=== PATIENT | female | born 1995 | race Caucasian/White ===

== ENCOUNTER → 2020-06-24 | Emergency (ER) | payer OTHER ==
[~2020-06-24] MED LIST: NICOTINE 21MG/24HR 1 EA TRANSDERMAL As Ordered ONE; NICOTINE 21MG/24HR 1 EA TRANSDERMAL ONE
[2020-08-08 18:01] LABS: HEMATOCRIT 44.1 % (36.0-47.0); HEMOGLOBIN 14.6 g/dl (12.0-15.5); MEAN CORPUSCULAR HEMOGLOBIN 28.5 pg (27.0-33.0); MEAN CORPUSCULAR HGB CONC 33.1 g/dl (32.0-36.5); MEAN CORPUSCULAR VOLUME 86.1 fl (80.0-96.0); PLATELET COUNT, AUTOMATED 355 10^3/uL (150-450); RED BLOOD COUNT 5.12 10^6/uL (4.00-5.40); WHITE BLOOD COUNT 10.6 10^3/uL (4.0-10.0)
[2020-09-04 16:12] LABS: ACETAMINOPHEN LEVEL < 2.0 UG/ML (10.0-30.0); ALT/SGPT 30 U/L (12-78); BILIRUBIN,DIRECT 0.1 MG/DL (0.0-0.2); BILIRUBIN,TOTAL 0.4 MG/DL (0.2-1.0); BLOOD UREA NITROGEN 15 MG/DL (7-18); CALCIUM LEVEL 9.3 MG/DL (8.5-10.1); CARBON DIOXIDE LEVEL 28 MEQ/L (21-32); CHLORIDE LEVEL 105 MEQ/L (98-107); CREATININE FOR GFR 0.72 MG/DL (0.55-1.30); ETHYL ALCOHOL (ETHANOL) < 0.003 % (0.000-0.010); GLOMERULAR FILTRATION RATE > 60.0 (>60); GLUCOSE, FASTING 106 MG/DL (70-100); POTASSIUM SERUM 3.6 MEQ/L (3.5-5.1); SALICYLATE LEVEL 3.5 MG/DL (5.0-30.0); SODIUM LEVEL 140 MEQ/L (136-145); TOTAL PROTEIN 8.4 GM/DL (6.4-8.2)
[2020-09-04 16:12] LABS: AMPHETAMINES LEVEL URINE NEGATIVE (NEGATIVE); BARBITURATES URINE NEGATIVE (NEGATIVE); BENZODIAZEPINES URINE NEGATIVE (NEGATIVE); CANNABINOIDS URINE POSITIVE (NEGATIVE); COCAINE METABOLITE URINE NEGATIVE (NEGATIVE); METHADONE URINE NEGATIVE (NEGATIVE); OPIATES URINE NEGATIVE (NEGATIVE); PHENCYCLIDINE URINE NEGATIVE (NEGATIVE)
[2020-09-08 20:44] LABS: HCG, SERUM QUALITATIVE NEGATIVE (NEGATIVE)
== END | disposition short-term general hospital (02) ==
LOC: M ED 06-23 08:12
DX: R45.851 Suicidal ideations (principal); I10 Essential (primary) hypertension; E66.9 Obesity, unspecified; Z91.19 Patient's noncompliance with other medical treatment and regimen; F12.10 Cannabis abuse, uncomplicated; F31.9 Bipolar disorder, unspecified; Z91.5 Personal history of self-harm; Z88.1 Allergy status to other antibiotic agents
CPT/HCPCS: 80048; 80076; 80307; 84443; 84703; 85027; 87486; 87581; 87633; 87798; 99285; G0480

== ENCOUNTER 2021-01-13 21:40 | Inpatient (IN) | payer OTHER ==
[~2021-01-13] VITALS: Ht 165.1 cm; Wt 109.6 kg
--- OUTSIDE RECORDS SUMMARY | 2021-01-13 21:44 | CCD ---
Author Author [facility] Organization [facility] Address Unknown Phone Unavailable Care Team Providers Care Furnace Mechanic Helper Name Role Phone NCKEITH, MJAIN Unavailable Unavailable MARAVEGIASSelena MD Unavailable Unavailable MARAVEGIASSelena MD Unavailable Unavailable MARAVEGIASSelena MD Unavailable Unavailable MARAVEGIASSelena MD Unavailable Unavailable MARAVEGIASelena Smith MD Unavailable Unavailable MARAVEGIASelena Smith MD Unavailable Unavailable MARAVEGIASelena Smith MD Unavailable Unavailable MARAVEGIASelena Smith MD Unavailable Unavailable MARAVEGIASelena Smith MD Unavailable Unavailable MARAVESelena GONZALEZ MD Unavailable Unavailable MARAVESelena GONZALEZ MD Unavailable Unavailable MARAVESelena GONZALEZ MD Unavailable Unavailable MARAVEGIASelena Smith MD Unavailable Unavailable MARAVEGIASSelena MD Unavailable Unavailable Nayely Richards DO Unavailable Unavailable Nayely Richards Haroon DO Unavailable Unavailable [place], Paul DO Unavailable Unavailable [place], Paul DO Unavailable Unavailable [place], Paul DO Unavailable Unavailable [place], Paul DO Unavailable Unavailable Re-disclosure Warning The records that you are about to access may contain information from federally-assisted alcohol or drug abuse programs. If such information is present, then the following federally mandated warning applies: This information has been disclosed to you from records protected by federal confidentiality rules (42 CFR part 2). The federal rules prohibit you from making any further disclosure of this information unless further disclosure is expressly permitted by the written consent of the person to whom it pertains or as otherwise permitted by 42 CFR part 2. A general authorization for the release of medical or other information is NOT sufficient for this purpose. The Federal rules restrict any use of the information to criminally investigate or prosecute any alcohol or drug abuse patient.The records that you are about to access may contain highly sensitive health information, the redisclosure of which is protected by Article 27-F of the [facility] Public Health law. If you continue you may have access to information: Regarding HIV / AIDS; Provided by facilities licensed or operated by the [facility] Office of Mental Health; or Provided by the [facility] Office for People With Developmental Disabilities. If such information is present, then the following [facility] mandated warning applies: This information has been disclosed to you from confidential records which are protected by state law. State law prohibits you from making any further disclosure of this information without the specific written consent of the person to whom it pertains, or as otherwise permitted by law. Any unauthorized further disclosure in violation of state law may result in a fine or fpc sentence or both. A general authorization for the release of medical or other information is NOT sufficient authorization for further disc losure. Allergies and Adverse Reactions Type Description Substance Reaction Status Data Source(s ) Drug allergy Drug allergy azithromycin (From Zithromax) Anaphylactic Shock [facility] Encounters Encounter Providers Location Date Indications Data Source(s ) Emergency Attender: Haroon Richards DOAttender: Paul Birmingham DO CPSCAORT-ED 08/30/2020 09:34:00 PM EDT - 08/30/2020 11:38:00 PM EDT [facility] Patient discharged. Outpatient Attender: RAJEEV [facility] LERAYDC 07/19/2020 12:02:02 AM EDT [facility] Emergency Attender: SHAWN CABRERA MD ED-ED 0 12/27/2019 07:14:00 PM EST - 12/27/2019 07:41:00 PM EST TOOTH PAIN [facility] TOOTH PAIN Patient discharged. Medications Medication Brand Name Start Date Product Form Dose Route Admi nistrative Instructions Pharmacy Instructions Status Indications Reaction Description Data Source(s) 600 mg 12/27/2019 12:00:00 AM EST tablet 30 TAKE ONE TABLET BY MOUTH EVERY 6 HOURS NEEDED FOR PAIN TAKE ONE TABLET BY MOUTH EVERY 6 HOURS A S NEEDED FOR PAIN SOLD: 12/27/2019 [facility] 300 mg 12/27/2019 12:00:00 AM EST capsule 40 TAKE ONE CAPSULE BY MOUTH FOUR TIMES A DAY FOR 10 DAYS TAKE ONE CAPSULE BY MOUTH FOUR TIMES A DAY FOR 10 DAYS SOLD: 12/27/2019 [facility] Insurance Providers Payer name Policy type / Coverage type Policy ID Covered democrat ID Covered democrat's relationship to irizarry Policy Irizarry Plan Information [facility] [employer] [id number] SP [id number] [facility] PL [id number] [facility] d [id number] PREET [id number] SP [id number] Medicaid P [id number] S [id number] [facility] PL [id number] S [id number] [facility] I [id number] Self [id number] ANSI-Commercial [id number] [facility] [id number] S [id number] MEDICAID PROF FEES [id number] S [id number] MEDICAID [id number] S [id number] MEDICAID [id number] SP [id number] PREET [id number] 18 [id number] MEDICAID -O/P [id number] 18 [id number] MEDICAID -PHYSICIAN [id number] [facility] S [id number] O [id number] MEDICAID -I/P [id number] [facility] PL[facility] -O/P [id number] Surgeries/Procedures Procedure Description Date Indications Data Source(s) CUL PRSMPTV PTHGNC ORGANISM SCRN W/COLONY ESTIMJ CULTURE SCR EEN ONLY 08/30/2020 12:00:00 AM [facility] CULTURE BACTERIAL BLOOD AEROBIC W/ID ISOLATES BLOOD CULTURE FOR BACTERIA 08/30/2020 12:00:00 AM [facility] SUSCEPTIBLTY STDY ANTIMICRBIAL MICRO/AGAR DILUTJ MICROBE HIREN CEPTIBLE NATHALIA 08/30/2020 12:00:00 AM [facility] CUL BACT XCPT URINE BLOOD/STOOL AEROBIC ISOL CULTURE OTHR SP ECIMN AEROBIC 08/30/2020 12:00:00 AM [facility] Non-covered item or service NON-COVERED ITEM OR SERVICE 07/2020 12:00:00 AM [facility] Injection, piperacillin sodium/tazobacta m sodium, 1 gram/0.125 grams (1.125 grams) 08/30/2020 12:00:00 AM [facility] COLLECTION VENOUS BLOOD VENIPUNCTURE ROUTINE VENIPUNCTURE 12:00:00 AM [facility] IV INFUSION THERAPY/PROPHYLAXIS /DX 1ST TO 1 HR THER/PROPH/D IAG IV INF INIT 08/30/2020 12:00:00 AM [facility] EMERGENCY DEPARTMENT VISIT HIGH/URGENT SEVERITY EMERGENCY DE PT VISIT 08/30/2020 12:00:00 AM [facility] Results ID Date Data Source [id number] 08/30/2020 09:34:00 PM [facility] Name: SALENA PRINCE Med Rec #: [id number] : 1995 Age/Sex: 25F Date of Service: 08/30/20 PHYSICIAN CHART Physician Documentation [facility] Name: Salena Prinec Age: 25 yrs Sex: Female : 1995 Arrival Date: 08/30/2020 Time: 21:34 Bed 13 Private MD: ED Physician Haroon Richards HPI: 08/30 22:23 This 25 yrs old Female presents to ER via Law mlm1 Enforcement wi th complaints of Abscess. 22:23 This is a obese 25-year-old female who has a history of mlm1 intermittent asthma not requiring daily bronchodilators, who is also an IV drug user. The patient is in police custody, before arrest, she apparently self injected IV drugs into her left dorsal forearm. Unfortunately this resulted in a large 8 cm abscess with an approximate 5 cm dome. It showed a clear central ulceration with a large pocket of frankly purulent hematoma. The patient denies fever, chills, nausea, vomiting. She does show signs of surrounding cellulitis, patient has significant pain due to the abscess. The patient has had abscesses like this before secondary to IV drug injection, the patient states that she would like the abscess drained, She has not recently been on a ntibiotics. Patient states she is allergic to azithromycin.. [employer] ARCHITECT: 21:45 LMP N/A - Irregular menses arj Historical: - Allergies: Zithromax; - Home Meds: 1. None - PMHx: ASTHMA; - PSHx: Wrist Surgery; Cholecystectomy; Dilation and currettage (D&C); - Med Reconciliation:: Medications reviewed, verbally from patient/family. - Immunization history: All immunizations are up to date. - Advance directive: There is no existing advanced directive. Information offered. - Family History:: mother is healthy, Father is healthy. - Social History: Smoking status (Tobacco): Patient states is a heavy tobacco smoker (>10 cigarettes a day). Preferred Language: Maltese. ROS: 22:28 Constitutional: I reviewed 10 systems all which were mlm1 negative other than those mentioned in the HPI. Exam: 22:28 Constitutional: This is a well developed, well nourished mlm1 patient who is awake, alert, and in significant dramatic painful distress Head/Face: Normocephalic, atraumatic. Eyes: Pupils equal round and reactive to light, extra-ocular motions intact. Lids and lashes normal. Conjunctiva and sclera are non-icteric and not injected. Cornea within normal limits. Periorbital areas with no swelling, redness, or edema. ENT: Nares patent. No nasal discharge, no septal abnormalities noted. Tympanic membranes are normal and external auditory canals are clear. Oropharynx with no redness, swelling, or masses, exudates, or evidence of obstruction, uvula midline. Mucous membranes moist. Neck: Trachea midline, no thyromegaly or masses palpated, and no cervical lymphadenopathy. Supple, full range of motion without nuchal rigidity, or vertebral point tenderness. No Meningismus. Chest/axilla: Normal chest wall appearance and motion. Nontender with no deformity. No lesions are appreciated. Clavicles show no deformity. Cardiovascular: Regular rate and rhythm with a normal S1 and S2. No murmurs or rubs. No noted arrthmias. No JVD. No pulse deficits. Respiratory: Lungs have clear & equal breath sounds bilaterally. No rales, rhonchi or wheezes noted. No increased work of breathing, no retractions or nasal flaring. Abdomen/GI: Morbidly obese soft, non-tender, with normal bowel sounds. No distension or tympany. No guarding, rigidity or rebound. No evidence of tenderness throughout. Skin: Warm, dry with normal turgor. Normal color with no rashes, no lesions, and no evidence of cellulitis. Abscess to the dorsal left forearm as noted in the HPI MS/ Extremity: Pulses equal, no cyanosis. Neurovascular intact. Full, normal range of motion. Neuro: Awake and alert, GCS 15, oriented to person, place, time, and situation. Cranial nerves II-XII grossly intact. Motor strength 5/5 in all extremities. Sensory grossly intact. Cerebellar exam normal. Normal gait. Psych: Awake, alert, with orientation to person, place and time. Behavior, mood, and affect are within normal limits. Mild intellectual defect Vital Signs: 21:45 BP 118 / 67; Pulse 95; Resp 18; Temp 97.4(TE); Pulse Ox 97% arj on R/A; Weight 117.93 kg (R); Height 5 ft. 6 in. (167.64 cm) (R); 23:37 BP 111 / 66; Pulse 86; Resp 16; Pulse Ox 98% ; jb7 21:45 Body Mass Index 41.96 (117.93 kg, 167.64 cm) [facility] MDM: 21:54 Patient medically screened. mlm1 22:29 ED course: After informed consent, the patient was prepped mlm1 and draped in a sterile fashion, the wound was cleaned with chlorhexidine and allowed to air dry, subsequently the anterior roof of the abscess was anesthetized with 10 cc of bupivacaine with 1% epinephrine, this was allowed to anesthetize for approximately 5 minutes, then using an 11 blade scalpel, a 1.5 cm linear laceration was made there was a large amount approximately 35 cc of frankly purulent and then seropurulent discharge, it was foul-smelling and had a component of likely anaerobe infection. The wound was then milked gently curetted, instilled with more lidocaine and then flushed with 10 cc of sterile saline, when the wound pocket was clean, it was left open, was wrapped in a dry sterile bandage and Coban to allow to drain. The patient received 3.375 g of Zosyn, she also received oral dose of Keflex and an oral dose of doxycycline. The patient will be discharged back into police custody with a 10-day course of both the doxycycline and the Keflex. The wound will be allowed to close by secondary intent. I discussed the plan of care with the patient and police, written instructions were given. A wound culture was taken and sent.. 22:55 ED course: The patient is tolerated the IV medicine, we ml have sent in a prescription, at the time of discharge the patient was awake alert oriented no acute distress and discharged in police custody. 08/30 22:27 Order name: Blood Culture - Venous mlm1 08/31 03:05 Order name: Wound Culture-Non Surgical Site: left forearm mlm1 08/30 22:27 Order name: Iv Saline Lock; Complete Time: 22:50 mlm1 Dispensed Medications: 23:02 Drug: Piperacillin-Tazobactam 3.375 grams jb7 [piperacillin-tazobactam 4.5 gram intravenous solution] Route: IVPB; Site: left antecubital; 23:39 Follow up: Response: No adverse reaction; IV Status: jb7 Completed infusion; IV Intake: 100ml 23:02 Drug: Cephalexin 500 mg [cephalexin 250 mg capsule (2 jb7 caps)] Route: PO; 23:39 Follow up: Response: No adverse reaction jb7 23:02 Drug: Doxycycline 100 mg [doxycycline hyclate 100 mg jb7 capsule (1 caps)] Route: PO; 23:39 Follow up: Response: No adverse reaction jb7 Disposition Summary: 08/30/20 22:57 Discharge Ordered Location: Home/Self Care mlm1 Problem: an ongoing problem mlm1 Symptoms: have improved mlm1 Condition: Good mlm1 Diagnosis - Cutaneous abscess of left upper limb mlm1 Followup: mlm1 - With: Private Physician - When: Rey nurse if unavailable return to the ER as needed - Reason: Recheck today's complaints Discharge Instructions: - Discharge Summary Sheet mlm1 - Skin Abscess mlm1 - Incision and Drainage mlm1 Forms: - Medication Reconciliation mlm1 Prescriptions: - Cephalexin 500 mg Oral Capsule - take 1 capsule by ORAL route every 12 hours for 10 mlm1 days; 20 capsule; Refills: 0, Product Selection Permitted - Doxycycline Hyclate 100 mg Oral Tablet - take 1 tablet by ORAL route every 12 hours; 20 mlm1 tablet; Refills: 0, Product Selection Permitted Signatures: Dispatcher [employer] EDHussain Brown RN RN jb7 Johnson, Abigail, RN RN arj Morgan, Matthew, MD MD mlm1 Name Value Range Interpretation Code Description Data Maryam rce(s) Supporting Document(s) ID Date Data Source [id number] 08/30/2020 09:34:00 PM EDT [facility] Name: SALENA PRINCE [facility] Rec #: [id number] : 1995 Age/Sex: 25F Date of Service: 08/30/20 DISPOSITION SUMMARY Discharge Summary [facility] Name:Salena [facility] Age:25 yrs Sex:Female :1995 Arrival:08/30/2020 21:34 Departure Date08/31/2020 Departure Time03:22 Private MD: Outcome: Discharge Location: Home/Self Care Condition: Good Chief Complaint: Abscess Diagnosis: Cutaneous abscess of left upper limb Prescriptions: Cephalexin 500 mg Oral Capsule - take 1 capsule by ORAL route every 12 hours for 10 days; 20 capsule, Doxycycline Hyclate 100 mg Oral Tablet - take 1 tablet by ORAL route every 12 hours; 20 tablet Custom Notes: Attending Physician: Haroon Richards MD Private MD: Mid Level Provider: Orders: Blood Culture - Venous, Wound Culture-Surgical Site, Piperacillin-Tazobactam, Cephalexin, Doxycycline, Wound Culture-Non Surgical Site: left forearm, Iv Saline Lock Discharge Instruction: Discharge Summary Sheet, Skin Abscess, Incision and Drainage, Medication Reconciliation Name Value Range Interpretation Code Description Data Maryam rce(s) Supporting Document(s) ID Date Data Source [id number] 08/30/2020 09:34:00 PM EDT [facility] Name: SALENA PRINCE [facility] Rec #: [id number] : 1995 Age/Sex: 25F Date of Service: 08/30/20 NURSE CHART Nurse's Notes [facility] Name: Salena Prince Age: 25 yrs Sex: Female : 1995 Arrival Date: 08/30/2020 Time: 21:34 Bed 13 Private MD: Diagnosis: Cutaneous abscess of left upper limb Presentation: 08/30 21:48 Transition of care: [facility]. Presenting arj complaint: Patient states - I have an abscess. Have you travelled in the last 30 days? No. Have you had contact with an individual with a confirmed diagnosis of Ebola or COVID-19? No. 21:48 Method Of Arrival: Law Enforcement: [facility] 21:48 Acuity: Urgent - 3 arj Triage Assessment: 21:48 SEPSIS SCREEN: A Confirmed or Suspected Infection is arj Unknown, their temperature is not <96.8 or >100.9, their heart rate is >90, their RR is not >20, it is unknown if their WBC is <4 or >12, the patient does not have new or unexplained altered mental status. SIRS or Sepsis criteria is not present. Suicide Screening: Have you had thoughts of harming yourself or others? No. The patient appears to have no apparent distress, to have some mild discomfort, The patient is behaving appropriately according to age, cooperative. Patient states the pain is currently a 10 / 10 The patient complains of pain in dorsal aspect of left forearm. The patient states the pain began 1weeks ago. The quality of the pain is described as Sore tender, The pain is described as continuous. Derm: Skin is healthy with good turgor, Skin is pink, warm & dry. Abscess located on dorsal aspect of left forearm is golf ball sized, has purulent drainage, is red, is raised. [employer] ARCHITECT: 21:45 LMP N/A - Irregular menses arj Historical: - Allergies: Zithromax; - Home Meds: 1. None - PMHx: ASTHMA; - PSHx: Wrist Surgery; Cholecystectomy; Dilation and currettage (D&C); - Med Reconciliation:: Medications reviewed, verbally from patient/family. - Immunization history: All immunizations are up to date. - Advance directive: There is no existing advanced directive. Information offered. - Family History:: mother is healthy, Father is healthy. - Social History: Smoking status (Tobacco): Patient states is a heavy tobacco smoker (>10 cigarettes a day). Preferred Language: Maltese. Screenin:52 AUDIT 1. How often do you have a drink containing alcohol? arj Never (0 points). Drug Abuse Screening Test: 1. Have you used drugs other than those required for medical reasons? Yes (1 point) 2. Do you use more than one drug at a time? No (0 points). Abuse screen: Denies threats or abuse. Denies injuries from another. Nutritional screening: No deficits noted. Patient has no identifiable fall risk (Iyer Scale: 0 points). Assessment: 22:52 Derm: Abscess located on dorsal aspect of left forearm is jb7 golf ball sized, has purulent drainage, has foul odor, is red, is raised. Vital Signs: 21:45 BP 118 / 67; Pulse 95; Resp 18; Temp 97.4(TE); Pulse Ox 97% arj on R/A; Weight 117.93 kg (R); Height 5 ft. 6 in. (167.64 cm) (R); 23:37 BP 111 / 66; Pulse 86; Resp 16; Pulse Ox 98% ; jb7 21:45 Body Mass Index 41.96 (117.93 kg, 167.64 cm) arj ED Course: 21:36 Patient arrived in ED. rld 21:48 Triage completed. arj 21:50 Arm band placed on right wrist. Patient has correct armband arj on for positive identification. Officer at Bedside. 21:53 Hussain Echavarria, RN is Primary Nurse. arj 21:54 Haroon Richards MD is Attending Physician. mlm1 22:51 Assist provider with I & D: of an abscess on left Forearm jb7 Set up I&D tray. Performed by Haroon Richards MD Culture sent to lab. Dressing with 4X4s, tape Patient tolerated well. Wound culture sent to lab. First set of blood cultures drawn Second set of blood cultures drawn by me. Inserted peripheral IV: 18 gauge in left antecubital area and blood collected. 23:38 Radiology: None performed. jb7 23:38 Discontinued IV bleeding controlled, pressure dressing jb7 applied, No redness/swelling at site. Administered Medications: 23:02 Drug: Piperacillin-Tazobactam 3.375 grams jb7 [piperacillin-tazobactam 4.5 gram intravenous solution] Route: IVPB; Site: left antecubital; 23:39 Follow up: Response: No adverse reaction; IV Status: jb7 Completed infusion; IV Intake: 100ml 23:02 Drug: Cephalexin 500 mg [cephalexin 250 mg capsule (2 jb7 caps)] Route: PO; 23:39 Follow up: Response: No adverse reaction jb7 23:02 Drug: Doxycycline 100 mg [doxycycline hyclate 100 mg jb7 capsule (1 caps)] Route: PO; 23:39 Follow up: Response: No adverse reaction jb7 Intake: 23:39 IV: 100ml; Total: 100ml. jb7 Outcome: 22:57 Discharge ordered by MD. calvillo 23:38 Patient verbalized understanding of disposition jb7 instructions. Patient has no functional deficits. Patient functions independently, Patient awake and alert. Oriented to person, place and time. 23:38 Patient discharged to police custody. 23:38 Condition: good Condition: stable Condition: improved 23:38 Discharge instructions given to patient, police, Patient was instructed on discharge instructions, follow up and referral plans, medication usage, The patient demonstrated understanding of instructions, medications, Prescriptions given X 2. 23:38 Vitals are Complete in accordance with Emergency Department Policy. 23:46 Patient left the ED. jb7 08/31 03:22 Patient left the ED. kl1 Signatures: Brad Caldwell RN RN kl1 Hussain Echavarria RN RN jb7 Charlette Gray RN RN arj Morgan, Matthew, MD MD mlGloria Lowery Name Value Range Interpretation Code Description Data Maryam rce(s) Supporting Document(s) ID Date Data Source [id number] 09/04/2020 11:34:00 PM EDT [facility] Name Value Range Interpretation Code Description Data Maryam rce(s) Supporting Document(s) Blood Culture-Venous [facility] ID Date Data Source [id number] 09/04/2020 11:34:00 PM EDT [facility] Hospital Name Value Range Interpretation Code Description Data Maryam rce(s) Supporting Document(s) Blood Culture-Venous [facility] Procedure Vital Signs ID Date Data Source [id number] 09/05/2020 11:30:00 AM EDT [facility] Hospital Name Value Range Interpretation Code Description Data Source(s) Weight (Calculated Kilograms) 113.44 113.44 [facility] Height (Calculated Centimeters) 165.1 165. 1 [facility] Body Mass Index (BMI) 37.9 37.9 [facility] Weight (Calculated Kilograms) 113.44 113.44 [facility] Height (Calculated Centimeters) 165.1 165. 1 [facility] Body Mass Index (BMI) 37.9 37.9 [facility] Weight (Calculated Kilograms) 113.44 113.44 [facility] Height (Calculated Centimeters) 165.1 165. 1 [facility] Body Mass Index (BMI) 37.9 37.9 [facility] ID Date Data Source [id number] 12/27/2019 07:42:00 PM EST [facility] Name Value Range Interpretation Code Description Data Source(s) Weight Measurement Method 8 8 [facility] Temperature Source 7 7 [facility] Temperature 97.7 97.7 [facility] Respiratory Rate [address] [facility] Pulse Rate 105 105 [facility] Height 65 65 [facility] Blood Pressure 152/105 152/105 [facility]
[2021-01-13] MEDS ORDERED: NALOXONE 2MG/2ML SYRINGE (J2310 PER 1MG) As Ordered ONE (21:53)
[2021-01-13] MEDS ORDERED: NOREPINEPHRINE 4 MG/4 ML AMP As Ordered ONE (21:55)
[2021-01-13 22:17] LABS: HEMATOCRIT 43.9 % (36.0-47.0); HEMOGLOBIN 12.2 g/dl (12.0-15.5); MEAN CORPUSCULAR HEMOGLOBIN 27.7 pg (27.0-33.0); MEAN CORPUSCULAR HGB CONC 27.8 g/dl (32.0-36.5); MEAN CORPUSCULAR VOLUME 99.5 fl (80.0-96.0); PLATELET COUNT, AUTOMATED 171 10^3/uL (150-450); RED BLOOD COUNT 4.41 10^6/uL (4.00-5.40); WHITE BLOOD COUNT 17.1 10^3/uL (4.0-10.0)
[2021-01-13 22:31] LABS: ATYPICAL LYMPH 5 % (0-5); EOSINOPHILS 1 % (0-3); MONOCYTES 1 % (0-5); NEUTROPHILS 7 % (28-66)
[2021-01-13 22:32] LABS: PLATELET ESTIMATE NORMAL (NORMAL)
[2021-01-13 22:38] LABS: LYMPHOCYTES 84 % (16-44); METAMYELOCYTES 2 % (0-0)
[2021-01-13 23:19] LABS: ALT/SGPT 345 U/L (12-78); BLOOD UREA NITROGEN 19 MG/DL (7-18); CALCIUM LEVEL 10.7 MG/DL (8.5-10.1); CARBON DIOXIDE LEVEL 20 MEQ/L (21-32); CHLORIDE LEVEL 104 MEQ/L (98-107); CK-MB VALUE MASS 2.1 NG/ML (<3.6); CPK CREATINE PHOSPHOKINASE 185 U/L (26-192); CREATININE FOR GFR 1.83 MG/DL (0.55-1.30); GLOMERULAR FILTRATION RATE 35.8 (>60); GLUCOSE, FASTING 246 MG/DL (70-100); POTASSIUM SERUM 7.8 MEQ/L (3.5-5.1); SODIUM LEVEL 143 MEQ/L (136-145)
[2021-01-13 23:20] LABS: AMPHETAMINES LEVEL URINE POSITIVE (NEGATIVE); BARBITURATES URINE NEGATIVE (NEGATIVE); BENZODIAZEPINES URINE NEGATIVE (NEGATIVE); CANNABINOIDS URINE NEGATIVE (NEGATIVE); COCAINE METABOLITE URINE NEGATIVE (NEGATIVE); METHADONE URINE NEGATIVE (NEGATIVE); OPIATES URINE POSITIVE (NEGATIVE); PHENCYCLIDINE URINE NEGATIVE (NEGATIVE)
[2021-01-13 23:20] LABS: ACETAMINOPHEN LEVEL < 2.0 UG/ML (10.0-30.0); BILIRUBIN,DIRECT 0.2 MG/DL (0.0-0.2); BILIRUBIN,TOTAL 0.3 MG/DL (0.2-1.0); ETHYL ALCOHOL (ETHANOL) < 0.003 % (0.000-0.010); MB/CK RELATIVE INDEX 1.14 (< OR =4); SALICYLATE LEVEL 2.5 MG/DL (5.0-30.0); TOTAL PROTEIN 6.4 GM/DL (6.4-8.2); TROPONIN I 0.12 NG/ML (< 0.10)
[2021-01-13] MEDS ORDERED: SODIUM BICARBONATE 8.4% INJ 50 ML SYRINGE IV STA (23:23)
[2021-01-13 23:24] LABS: HCG, SERUM QUALITATIVE NEGATIVE (NEGATIVE)
[2021-01-13] MEDS ORDERED: SODIUM BICARBONATE 150 MEQ in D5W 1,000 ML IV SCH (23:30)
[2021-01-13] MEDS ORDERED: CALCIUM CHLORIDE 10% 1 GM in D5W 100 ML IV ONE (23:30)
--- NOTE | 2021-01-13 23:34 | REPVR ---
PROCEDURE INFORMATION: Exam: XR Chest, 1 View Exam date and time: 01/13/21 (10:42pm) Age: 25 years old Clinical indication: Drug overdose. E-T and NG tube placements. TECHNIQUE: Imaging protocol: Portable CXR Views: 1 view COMPARISON: No relevant prior studies available FINDINGS: No prior chest films are available for comparison. The patient is slightly rotated to an HOLDER position. Hazy and streaky opacities at the left lung base. Possible additional small hazy opacity laterally near the left lung base. Elevation of the left hemidiaphragm. No significant pleural effusions. The right lung appears clear. E-T tube in place, with its tip in in the proximal right mainstem bronchus on 1 of the 2 films provided. Enteric tube is seen, passing into the stomach. IMPRESSION: Probable streaky and patchy LLL pneumonia. Perhaps aspiration, eg. Possible additional small infiltrate more peripherally near the left lung base. No significant pleural effusions. E-T tube in place, with its tip in in the proximal right mainstem bronchus on 1 of the 2 films provided. Enteric tube is seen, passing into the stomach. Electronically signed by: Priscilla Mccormick On 01/13/2021 23:34:16 PM
--- NOTE | 2021-01-13 23:37 | REPVR ---
PROCEDURE INFORMATION: Exam: XR Abdomen, 1 View Exam date and time: 01/13/21 (10:32pm) Age: 25 years old Clinical indication: Right-sided central line placement TECHNIQUE: Imaging protocol: XR of the abdomen. Views: Frontal supine view of the abdomen. 1 View. COMPARISON: No relevant prior studies available FINDINGS: A single portable supine view of the mid abdomen and the mid and upper pelvis is provided. The right lateral abdomen is not included on the film. An enteric tube is seen, with its tip in the midportion of the stomach. The stomach is mildly distended, filled with air. A few air-filled bowel loops are noted, in a nonspecific pattern. A right-sided femoral catheter is seen, with its tip projecting over the right hemisacrum. IMPRESSION: An enteric tube is seen, with its tip in the midportion of the stomach. A right-sided femoral catheter is seen, with its tip projecting over the right hemisacrum. See additional comments above. Electronically signed by: Priscilla Mccormick On 01/13/2021 23:37:56 PM
--- NOTE | 2021-01-13 23:40 | REPVR ---
PROCEDURE INFORMATION: Exam: CT Head without Contrast Exam date and time: 01/13/21 (11:23pm) Age: 25 years old Clinical indication: Altered mental status / memory loss. Unresponsive. Drug overdose. TECHNIQUE: Imaging protocol: Computed tomography of the head without contrast. Radiation optimization: All CT scans at this facility use at least one of these dose optimization techniques: automated exposure control; mA and/or kV adjustment per patient size (includes targeted exams where dose is matched to clinical indication); or iterative reconstruction. COMPARISON: No relevant prior studies available FINDINGS: Brain: Unremarkable. No acute hemorrhage. Unremarkable white matter. No mass effect. Cerebral ventricles: No ventriculomegaly. Bones/joints: Unremarkable. No acute fracture. Paranasal sinuses: Left sphenoid sinus polyp or cyst (13 mm size). Bilateral ethmoid sinus membrane thickening. Mastoid air cells: Visualized mastoid air cells are well aerated. Soft tissues: Unremarkable. IMPRESSION: No acute intracranial pathology is appreciated. Electronically signed by: Priscilla Mccormick On 01/13/2021 23:40:53 PM
[2021-01-14] VITALS (71 sets, daily range): BP systolic 38–171; BP diastolic 26–112
[2021-01-14] MEDS ORDERED: MIDAZOLAM INJ 2MG/2ML VIAL (J2250 PER 1MG) IV PRN
[2021-01-14] MEDS ORDERED: VASOPRESSIN INJ 20 UNITS in NS 500 ML IV SCH ×2
[2021-01-14] MEDS ORDERED: dexameTHASONE 20MG/5ML VIAL (J1100 PER 1MG) IV SCH
[2021-01-14] MEDS ORDERED: PIPERACILLIN/TAZOBACTAM SOD 2.25 GM in D5W MINI-BAG PLUS 50 ML IV SCH ×2
[2021-01-14] MEDS ORDERED: ALBUTEROL SULFATE 2.5 MG/0.5 ML INH NEB SOLN NEB PRN
[2021-01-14] MEDS ORDERED: EPINEPHrine 1MG/10ML SYRINGE 1.5IN IV STA (00:03)
[2021-01-14] MEDS ORDERED: NALOXONE 2MG/2ML SYRINGE (J2310 PER 1MG) IV STA (00:03)
[2021-01-14] MEDS ORDERED: DEXTROSE 50% 50 ML SYRINGE IV STA (00:21)
[2021-01-14] MEDS ORDERED: HumuLIN R (REGULAR) INSULIN (NovoLIN R) **100U/ML** PER UNIT IV STA ×2 (00:21→02:46)
[2021-01-14] MEDS: NOREPINEPHRINE BITARTRATE 8 MG in D5W 492 ML IV SCH ×5 (00:22→22:52)
--- OUTSIDE RECORDS SUMMARY | 2021-01-14 00:22 | CCD ---
Author Author [facility] Organization [facility] Address Unknown Phone Unavailable Care Team Providers Care Education Associate Name Role Phone NCKEITH, MJAIN Unavailable Unavailable [...] Unavailable Nayely Richards Haroon DO Unavailable Unavailable [place], Paul DO Unavailable Unavailable [place], Paul DO Unavailable Unavailable [place], Paul DO Unavailable Unavailable [place], Paul DO Unavailable Unavailable Re-disclosure Warning The [...] is protected by Article 27-F of the [facility] Public Health law. If you continue you may have access to information: Regarding HIV / AIDS; Provided by facilities licensed or operated by the [facility] Office of Mental Health; or Provided by the [facility] Office for People With Developmental Disabilities. If such information is present, then the following [facility] mandated warning applies: This information has been [...] law may result in a fine or shelter sentence or both. A general authorization for the release of medical or other information is NOT sufficient authorization for further disc losure. Allergies and Adverse Reactions Type Description Substance Reaction Status Data Source(s ) Drug allergy Drug allergy azithromycin (From Zithromax) Anaphylactic Shock [facility] Encounters Encounter Providers Location Date Indications Data Source(s ) Emergency Attender: Haroon Richards DOAttender: Paul Birmingham DO CPSCAORT-ED 08/30/2020 09:34:00 PM EDT - 08/30/2020 11:38:00 PM EDT ABSCESS [facility] ABSCESS Patient discharged. Outpatient Attender: RAJEEV [facility] LERAY[facility] 07/19/2020 12:02:02 AM EDT [facility] Emergency Attender: SHAWN CABRERA MD ED-ED 0 12/27/2019 07:14:00 PM EST - 12/27/2019 07:41:00 PM EST TOOTH PAIN [facility] TOOTH PAIN Patient discharged. Medications Medication [...] type / Coverage type Policy ID Covered green party ID Covered green party's relationship to irizarry Policy Irizarry Plan Information [facility] [id number] SP [id number] [facility] PL [id number] [facility] d [id number] PREET [id number] SP [id number] Medicaid P [id number] S [id number] [facility] PL [id number] S [id number] [facility] I [id number] Self [id number] ANSI-Commercial [id number] [facility] [id number] S [id number] MEDICAID PROF FEES [id number] S [id number] MEDICAID [id number] S [id number] MEDICAID [id number] SP [id number] PREET [id number] 18 [id number] MEDICAID -O/P [id number] 18 [id number] MEDICAID -PHYSICIAN [id number] [facility] S [id number] O [id number] MEDICAID -I/P [id number] 18 [id number] [facility] PLUS -O/P [id number] Surgeries/Procedures Procedure Description Date Indications Data Source(s) CUL PRSMPTV PTHGNC ORGANISM SCRN W/COLONY ESTIMJ CULTURE SCR EEN ONLY 08/30/2020 12:00:00 AM [facility] CULTURE BACTERIAL BLOOD AEROBIC W/ID ISOLATES BLOOD CULTURE FOR BACTERIA 08/30/2020 12:00:00 AM [facility] SUSCEPTIBLTY STDY ANTIMICRBIAL MICRO/AGAR DILUTJ MICROBE HIREN CEPTIBLE NATHALIA 08/30/2020 12:00:00 AM [facility] CUL BACT XCPT URINE BLOOD/STOOL AEROBIC ISOL CULTURE OTHR SP ECIMN AEROBIC 08/30/2020 12:00:00 AM [facility] Non-covered item or service NON-COVERED ITEM OR SERVICE 07/2020 12:00:00 AM [facility] Injection, piperacillin sodium/tazobacta m sodium, 1 gram/0.125 grams (1.125 grams) 08/30/2020 12:00:00 AM [facility] COLLECTION VENOUS BLOOD VENIPUNCTURE ROUTINE VENIPUNCTURE 12:00:00 AM [facility] IV INFUSION THERAPY/PROPHYLAXIS /DX 1ST TO 1 HR THER/PROPH/D IAG IV INF INIT 08/30/2020 12:00:00 AM [facility] EMERGENCY DEPARTMENT VISIT HIGH/URGENT SEVERITY EMERGENCY DE PT VISIT 08/30/2020 12:00:00 AM [facility] Results ID Date Data Source [id number] 08/30/2020 09:34:00 PM [facility] Hospital Name: SALENA PRINCE Med Rec #: [id number] : 1995 Age/Sex: 25F Date of Service: 08/30/20 PHYSICIAN CHART Physician Documentation [facility] Name: Salena Prince Age: 25 yrs [...] Patient states she is allergic to azithromycin.. 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 Preferred Language: Georgian. ROS: 22:28 Constitutional: I reviewed 10 systems [...] Mass Index 41.96 (117.93 kg, 167.64 cm) [facility] MDM: 21:54 Patient medically screened. mlm1 22:29 [...] rce(s) Supporting Document(s) ID Date Data Source [id number] 08/30/2020 09:34:00 PM EDT [facility] Name: SALENA PRINCE [facility] Rec #: [id number] : 1995 Age/Sex: 25F Date of Service: 08/30/20 DISPOSITION SUMMARY Discharge Summary [facility] Name:Salena Prince Emergency Department Age:25 yrs [...] rce(s) Supporting Document(s) ID Date Data Source [id number] 08/30/2020 09:34:00 PM EDT [facility] Name: SALENA PRINCE [facility] Rec #: [id number] : 1995 Age/Sex: 25F Date of Service: 08/30/20 NURSE CHART Nurse's Notes [facility] Name: Salena Prince Age: 25 yrs [...] No. 21:48 Method Of Arrival: Law Enforcement: [employer] [facility] 21:48 Acuity: Urgent - 3 arj Triage [...] has purulent drainage, is red, is raised. 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 Preferred Language: Georgian. Screenin:52 AUDIT 1. How often do you [...] rce(s) Supporting Document(s) ID Date Data Source [id number] 09/04/2020 11:34:00 PM EDT [facility] Name Value Range Interpretation Code Description Data Maryam rce(s) Supporting Document(s) Blood Culture-Venous [facility] ID Date Data Source [id number] 09/04/2020 11:34:[address] [facility] Hospital Name Value Range Interpretation Code Description Data Maryam rce(s) Supporting Document(s) Blood Culture-Venous [facility] Procedure Vital Signs ID Date Data Source [id number] 09/05/2020 11:30:[address] [facility] Hospital Name Value Range Interpretation Code Description Data Source(s) Weight (Calculated Kilograms) 113.44 113.44 [facility] Height (Calculated Centimeters) 165.1 165. 1 [facility] Body Mass Index (BMI) 37.9 37.9 [facility] Weight (Calculated Kilograms) 113.44 113.44 [facility] Height (Calculated Centimeters) 165.1 165. 1 [facility] Body Mass Index (BMI) 37.9 37.9 [facility] Weight (Calculated Kilograms) 113.44 113.44 [facility] Height (Calculated Centimeters) 165.1 165. 1 [facility] Body Mass Index (BMI) 37.9 37.9 [facility] ID Date Data Source [id number] 12/27/2019 07:42:00 PM EST [facility]ital Name Value Range Interpretation Code Description Data Source(s) Weight Measurement Method 8 8 [facility] Temperature Source 7 7 [facility] Temperature 97.7 97.7 [facility] spital Respiratory Rate 20 20 [facility] Pulse Rate 105 105 [facility] Height 65 65 [facility] Blood Pressure 152/105 152/105 [facility]
--- OUTSIDE RECORDS SUMMARY | 2021-01-14 00:23 | CCD ---
Author Author [facility] Organization [facility] Address Unknown Phone Unavailable Care Team Providers Care Automotive Buyer Name Role Phone NCKEITH, MJAIN Unavailable Unavailable [...] Unavailable Nayely Richards Haroon DO Unavailable Unavailable [place], Paul DO Unavailable Unavailable [place], Paul DO Unavailable Unavailable [place], Paul DO Unavailable Unavailable [place], Paul DO Unavailable Unavailable Re-disclosure Warning The [...] is protected by Article 27-F of the [facility] Public Health law. If you continue you may have access to information: Regarding HIV / AIDS; Provided by facilities licensed or operated by the [facility] Office of Mental Health; or Provided by the [facility] Office for People With Developmental Disabilities. If such information is present, then the following [facility] mandated warning applies: This information has been [...] law may result in a fine or snf sentence or both. A general authorization for the release of medical or other information is NOT sufficient authorization for further disc losure. Allergies and Adverse Reactions Type Description Substance Reaction Status Data Source(s ) Drug allergy Drug allergy azithromycin (From Zithromax) Anaphylactic Shock [facility] Encounters Encounter Providers Location Date Indications Data Source(s ) Emergency Attender: Haroon Richards DOAttender: Paul Birmingham DO CPSCAORT-ED 08/30/2020 09:34:00 PM EDT - 08/30/2020 11:38:00 PM EDT ABSCESS [facility] ABSCESS Patient discharged. Outpatient Attender: RAJEEV [facility] LERAY[facility] 07/19/2020 12:02:02 AM EDT [facility] Emergency Attender: SHAWN CABRERA MD ED-ED 0 12/27/2019 07:14:00 PM EST - 12/27/2019 07:41:00 PM EST TOOTH PAIN [facility] TOOTH PAIN Patient discharged. Medications Medication Brand [...] Policy Irizarry Plan Information [facility] [id number] SP [id number] [facility] PL [id number] [facility] d [id number] PREET [id number] SP [id number] Medicaid P [id number] S [id number] [facility] [address] [id number] S [id number] [facility] I [id number] Self [id number] ANSI-Commercial [id number] [facility] [id number] S [id number] MEDICAID PROF FEES [id number] S [id number] MEDICAID [id number] S [id number] MEDICAID [id number] SP [id number] PREET [id number] 18 [id number] MEDICAID -O/P [id number] 18 [id number] MEDICAID -PHYSICIAN [id number] 1 8 [id number] [facility] [place] S [id number] O [id number] MEDICAID -I/P [id number] [facility] PLUS -O/P [id number] Surgeries/Procedures Procedure Description Date Indications Data Source(s) CUL PRSMPTV PTHGNC ORGANISM SCRN W/COLONY ESTIMJ CULTURE SCR EEN ONLY 08/30/2020 12:00:00 AM [facility] CULTURE BACTERIAL BLOOD AEROBIC W/ID ISOLATES BLOOD CULTURE FOR BACTERIA 08/30/2020 12:00:00 AM [facility] SUSCEPTIBLTY STDY ANTIMICRBIAL MICRO/AGAR DILUTJ MICROBE HIREN CEPTIBLE NATHALIA 08/30/2020 12:00:00 AM [facility] CUL BACT XCPT URINE BLOOD/STOOL AEROBIC ISOL CULTURE OTHR SP ECIMN AEROBIC 08/30/2020 12:00:00 AM [facility] Non-covered item or service NON-COVERED ITEM OR SERVICE 07/2020 12:00:00 AM [facility] Injection, piperacillin sodium/tazobacta m sodium, 1 gram/0.125 grams (1.125 grams) 08/30/2020 12:00:00 AM [facility] COLLECTION VENOUS BLOOD VENIPUNCTURE ROUTINE VENIPUNCTURE 12:00:00 AM [facility] IV INFUSION THERAPY/PROPHYLAXIS /DX 1ST TO 1 HR THER/PROPH/D IAG IV INF INIT 08/30/2020 12:00:00 AM [facility] EMERGENCY DEPARTMENT VISIT HIGH/URGENT SEVERITY EMERGENCY DE PT VISIT 08/30/2020 12:00:00 AM [facility] Results ID Date Data Source [id number] 08/30/2020 09:34:00 PM [facility] Hospital Name: SALENA PRINCE Med Rec #: [id number] : 1995 Age/Sex: 25F Date of Service: 08/30/20 PHYSICIAN CHART Physician Documentation [facility] Name: Salena Prince Age: 25 yrs [...] Patient states she is allergic to azithromycin.. 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 Preferred Language: Puerto Rican. ROS: 22:28 Constitutional: I reviewed 10 systems [...] Mass Index 41.96 (117.93 kg, 167.64 cm) [facility] MDM: 21:54 Patient medically screened. mlm1 [...] rce(s) Supporting Document(s) ID Date Data Source [id number] 08/30/2020 09:34:00 PM EDT [facility] Name: SALENA PRINCE [facility] Rec #: [id number] : 1995 Age/Sex: 25F Date of Service: 08/30/20 DISPOSITION SUMMARY Discharge Summary [facility] Name:Salena Prince Emergency Department Age:25 yrs [...] rce(s) Supporting Document(s) ID Date Data Source [id number] 08/30/2020 09:34:00 PM EDT [facility] Name: SALENA PRINCE [facility] Rec #: [id number] : 1995 Age/Sex: 25F Date of Service: 08/30/20 NURSE CHART Nurse's Notes [facility] Name: Salena Prince Age: 25 yrs [...] No. 21:48 Method Of Arrival: Law Enforcement: [employer] [facility] 21:48 Acuity: Urgent - 3 arj [...] has purulent drainage, is red, is raised. 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 Preferred Language: Puerto Rican. Screenin:52 AUDIT 1. How often do you [...] rce(s) Supporting Document(s) ID Date Data Source [id number] 09/04/2020 11:34:00 PM EDT [facility] Name Value Range Interpretation Code Description Data Maryam rce(s) Supporting Document(s) Blood Culture-Venous [facility] ID Date Data Source [id number] 09/04/2020 11:34:00 PM EDT [facility] Hospital Name Value Range Interpretation Code Description Data Maryam rce(s) Supporting Document(s) Blood Culture-Venous [facility] Procedure Vital Signs ID Date Data Source [id number] 09/05/2020 11:30:00 AM EDT [facility] Hospital Name Value Range Interpretation Code Description Data Source(s) Weight (Calculated Kilograms) 113.44 113.44 [facility] Height (Calculated Centimeters) 165.1 165. 1 [facility] Body Mass Index (BMI) 37.9 37.9 [facility] Weight (Calculated Kilograms) 113.44 113.44 [facility] Height (Calculated Centimeters) 165.1 165. 1 [facility] Body Mass Index (BMI) 37.9 37.9 [facility] Weight (Calculated Kilograms) 113.44 113.44 [facility] Height (Calculated Centimeters) 165.1 165. 1 [facility] Body Mass Index (BMI) 37.9 37.9 [facility] ID Date Data Source [id number] 12/27/2019 07:42:00 PM EST [facility] Name Value Range Interpretation Code Description Data Source(s) Weight Measurement Method 8 8 [facility] Temperature Source 7 7 [facility] Temperature 97.7 97.7 [facility] Respiratory Rate 20 20 [facility] Pulse Rate 105 105 [facility] Height 65 65 [facility] Blood Pressure 152/105 152/105 [facility]
[2021-01-14] MEDS: SODIUM BICARBONATE 150 MEQ in STERILE WATER LITER BAG 1,000 ML IV SCH ×2 (01:27→09:08)
[2021-01-14 01:35] LABS: ABG BASE EXCESS -12.3 (-2.0-2.0); ABG O2 SATURATION 73.3 % (95.0-99.0); ABG PARTIAL PRESSURE CO2 68.7 mmHg (35.0-45.0); ABG PARTIAL PRESSURE O2 45.1 mmHg (75.0-100.0); ABG STANDARD HCO3 14.6 MEQ/L (22.0-26.0); ABG TOTAL CO2 21.1 MEQ/L (22.0-29.0); ABG pH (ARTERIAL) 7.059 UNITS (7.350-7.450)
[2021-01-14] MEDS: PANTOPRAZOLE 40MG VIAL (C9113 PER 1) IV SCH ×3 (02:00→21:18)
[2021-01-14 02:07] LABS: HEMOGLOBIN 12.5 g/dl (12.0-15.5); MEAN CORPUSCULAR HEMOGLOBIN 27.2 pg (27.0-33.0); MEAN CORPUSCULAR HGB CONC 29.1 g/dl (32.0-36.5); MEAN CORPUSCULAR VOLUME 93.5 fl (80.0-96.0); PLATELET COUNT, AUTOMATED 160 10^3/uL (150-450); WHITE BLOOD COUNT 11.9 10^3/uL (4.0-10.0)
[2021-01-14 02:24] LABS: PARTIAL THROMBOPLASTIN TIME 235.7 SECONDS (24.2-38.5)
[2021-01-14 02:46] LABS: PROTHROMBIN TIME > 150.0 SECONDS (12.5-14.3)
[2021-01-14 02:49] LABS: FIBRINOGEN < 60 MG/DL (221-452)
[2021-01-14 02:52] LABS: D-DIMER QUANT > 4000 ng/ml (<500)
[2021-01-14 02:53] LABS: ALBUMIN 2.9 GM/DL (3.2-5.2); BILIRUBIN,TOTAL 0.5 MG/DL (0.2-1.0); CALCIUM LEVEL 9.2 MG/DL (8.5-10.1); CREATININE FOR GFR 1.97 MG/DL (0.55-1.30); GLOMERULAR FILTRATION RATE 32.9 (>60); MAGNESIUM LEVEL 3.1 MG/DL (1.8-2.4); POTASSIUM SERUM 4.7 MEQ/L (3.5-5.1); TOTAL PROTEIN 6.7 GM/DL (6.4-8.2)
[2021-01-14 04:59] LABS: ABG BASE EXCESS -7.9 (-2.0-2.0); ABG HCO3 20.3 MEQ/L (22.0-26.0); ABG O2 SATURATION 96.4 % (95.0-99.0); ABG PARTIAL PRESSURE CO2 53.1 mmHg (35.0-45.0); ABG PARTIAL PRESSURE O2 88.8 mmHg (75.0-100.0); ABG STANDARD HCO3 18.1 MEQ/L (22.0-26.0); ABG TOTAL CO2 21.9 MEQ/L (22.0-29.0)
[2021-01-14 05:48] LABS: HEMATOCRIT 37.2 % (36.0-47.0); HEMOGLOBIN 11.3 g/dl (12.0-15.5); MEAN CORPUSCULAR HEMOGLOBIN 27.6 pg (27.0-33.0); MEAN CORPUSCULAR HGB CONC 30.4 g/dl (32.0-36.5); MEAN CORPUSCULAR VOLUME 90.7 fl (80.0-96.0); PLATELET COUNT, AUTOMATED 165 10^3/uL (150-450); WHITE BLOOD COUNT 14.8 10^3/uL (4.0-10.0)
[2021-01-14 05:53] LABS: PROTHROMBIN TIME 105.6 SECONDS (12.5-14.3)
[2021-01-14 05:54] LABS: PARTIAL THROMBOPLASTIN TIME 100.5 SECONDS (24.2-38.5)
[2021-01-14 06:19] LABS: ALBUMIN 2.5 GM/DL (3.2-5.2); BILIRUBIN,TOTAL 0.4 MG/DL (0.2-1.0); CALCIUM LEVEL 8.2 MG/DL (8.5-10.1); CK-MB VALUE MASS 26.2 NG/ML (<3.6); GLOMERULAR FILTRATION RATE 32.3 (>60); MAGNESIUM LEVEL 2.4 MG/DL (1.8-2.4); MB/CK RELATIVE INDEX 3.48 (< OR =4); POTASSIUM SERUM 3.9 MEQ/L (3.5-5.1); TOTAL PROTEIN 5.6 GM/DL (6.4-8.2); TROPONIN I 4.81 NG/ML (< 0.10)
[2021-01-14 06:31] LABS: INR 13.76
[2021-01-14 07:09] LABS: D-DIMER QUANT > 4000 ng/ml (<500); FIBRINOGEN < 60 MG/DL (221-452)
[2021-01-14] MEDS ORDERED: VASOPRESSIN INJ 20 UNITS in NS 499 ML IV SCH (07:11)
[2021-01-14 07:22] LABS: EOSINOPHILS 1 % (0-3); LYMPHOCYTES 13 % (16-44); MONOCYTES 3 % (0-5); MYELOCYTES 1 % (0-0); NEUTROPHILS 79 % (28-66)
[2021-01-14 07:23] LABS: PLATELET ESTIMATE NORMAL (NORMAL)
[2021-01-14 07:25] LABS: BURR CELLS 1+
[2021-01-14] MEDS ORDERED: NS 1,000 ML IV ONE (07:45)
[2021-01-14] MEDS: VASOPRESSIN INJ 20 UNITS in NS 499 ML IV SCH ×3 (08:02→23:18)
[2021-01-14] MEDS: PIPERACILLIN/TAZOBACTAM SOD 2.25 GM in D5W MINI-BAG PLUS 50 ML IV SCH ×3 (08:07→23:57)
[2021-01-14 08:22] LABS: INR 3.31; PROTHROMBIN TIME 34.4 SECONDS (12.5-14.3)
[2021-01-14 08:23] LABS: PARTIAL THROMBOPLASTIN TIME 61.5 SECONDS (24.2-38.5)
[2021-01-14 08:49] LABS: FIBRINOGEN < 60 MG/DL (221-452)
[2021-01-14] MEDS ORDERED: PANTOPRAZOLE 40MG VIAL (C9113 PER 1) IV SCH (09:00)
[2021-01-14] MEDS: LR 1,000 ML IV SCH ×2 (09:08→17:03)
--- NOTE | 2021-01-14 09:30 | HPE ---
HISTORY AND PHYSICAL DATE OF ADMISSION: 01/14/2021 CHIEF COMPLAINT: Cardiac arrest. HISTORY OF PRESENT ILLNESS: History is obtained from the chart and from other collateral sources as patient is intubated and unable to provide a history. Ms. Prince is a 25-year-old female with a past medical history of obesity and bipolar disorder, and history of drug abuse who was brought in by EMS after an [id number] cardiac arrest. Patient had a previous history of drug use with Jacqui and reportedly was at a drug house earlier today where she had used heroin instead. Patient was last known to be seen to be moving somewhat on a bed around 6 p.m. EMS arrived sometime around 9 p.m. after she was found to be non-responsive. In the field, she was reportedly in pulseless electrical activity (PEA) arrest and had CPR performed receiving 5 rounds of epinephrine as well as 5 rounds of Narcan, a gram of calcium chloride and one amp of sodium bicarbonate. She had intraosseous (IO) placed in the left tibia in the field and was also intubated in the field by EMS. She reportedly had received return of spontaneous circulation (ROSC) after approximately 15-20 minutes of CPR. Upon arrival to the emergency room however, the patient was in pulseless electrical activity (PEA) on the monitor and CPR was started again. She was given additional Narcan as well as two rounds of epinephrine before she was found to be in ventricular tachycardia on the monitor. She was defibrillated once and then noted to have return of spontaneous circulation (ROSC). She was hypotensive post arrest and started on Levophed and had a femoral central line placed in the emergency department by the emergency department physician as well as a right radial arterial line. The approximate CPR time in the emergency room was an additional 11-15 minutes. Post cardiac arrest, the patient has been unresponsive. She has not received any sedation and she has no purposeful movements, and is not withdrawing to painful stimuli. The patient is also hypoxic and she does have pat blood output from her ET tube. She also has more dark maroon output from her OG tube to suction. She appeared to have some evidence of bloody vomitus on her face as well and there was a potential for more traumatic intubation in the field. The patient's respiratory rate on the ventilator in the emergency department was increased from 22 to 27 given her respiratory acidosis. The patient was also started on bicarbonate infusion in the emergency department and given an additional gram of calcium, and the patient was transferred to the ICU for further management. PAST MEDICAL/MEDICAL HISTORY: Unable to be obtained. HOME MEDICATIONS: Unable to be obtained. FAMILY HISTORY: Unable to be obtained. ALLERGIES: No known drug allergies. SOCIAL HISTORY: The patient with a reported history of drug abuse with Jacqui in the past and currently reportedly with heroin abuse. There is also a history of nicotine dependence. PHYSICAL EXAMINATION: VITALS: Temperature 97.3, pulse 97, respirations 27, blood pressure 93/49. O2 sat 87% 100% FiO2. In: 2 liters bolus. Out: Not reported. GENERAL: The patient is intubated and is not sedated. She is unresponsive to painful stimuli. HEENT: Normocephalic, atraumatic. Pupils are fixed and dilated. There are mucous membranes noted. There are some dried bloody secretions from her nares and from her mouth and more active bleeding from left nostril NECK: Thick and supple. Trachea is midline. No palpable cervical adenopathy. CARDIOVASCULAR: Tachycardic, regular rate and rhythm. Normal S1 and S2. Unable to clearly auscultate murmurs. PULMONARY: There are diffuse rhonchi and wheezes noted as well as with occasional crackles. There is bright red blood output on suctioning from the endotracheal tube. ABDOMEN: Obese and soft; nondistended. Maroon output from OGT and bright red blood from rectum EXTREMITIES: There is no significant lower extremity edema noted. Patient had a left intraosseous (IO) which had infiltrated. There is a dressing in place currently. She has a right femoral triple lumen and a right radial arterial line. LABORATORY: WBC 17.1, hemoglobin 12.2, platelets are 171. Chemistries: Sodium is 143, potassium 7.8, chloride 104, bicarbonate 20, BUN 19, creatinine 1.83, glucose of 246. Anion gap is 19. Calcium is 10.7. AST/ALT 790 and 345. CPK 105. Albumin 2.0. Troponin 0.12. Lactic acid 17.1. Arterial blood gases: pH 7.6909, pCO2 of 87.7, pO2 of 93. Urine toxicology: Positive for opiates and amphetamines. Her alcohol salicylate and acetaminophen levels were negative. Micro: Patient's respiratory panel was positive for COVID-19. IMAGING: Chest x-ray on admission showed endotracheal (ET) tube in the right main stem, which was adjusted. There is some increased pulmonary vascular markings bilaterally as well as increased hazy opacity in the left base. There is an orogastric (OG) tube in the place coursing the low diaphragm. CT head reportedly showed no acute intracranial abnormality. There does appear to be very early to mild loss of differentiation in the collins/white matter. ASSESSMENT AND PLAN: Ms. Prince is a 25-year-old female with a history of drug abuse who presented as an imo-zq-[id number] cardiac arrest. The patient has unknown down time and was last seen mobile about three hours prior to EMS arrival. Patient was found to be in pulseless electrical activity (PEA) arrest by EMS. They had performed approximately 20 minutes of CPR before having return of spontaneous circulation (ROSC) briefly. She was intubated in the field by EMS. Upon arrival to the emergency department, the patient was in pulseless electrical activity (PEA) arrest again. She had another 15 minutes of CPR in the emergency department before achieving return of spontaneous circulation (ROSC). She did also have an episode of ventricular tachycardia (VT) and had received one defibrillation. Post arrest, she is unresponsive without sedation. She was also hypotensive and was started on Levophed. She did have a central line placed in the emergency department as well as an arterial line. 1. Neuro: Patient with encephalopathy likely secondary to anoxic injury given her presumed prolonged downtime and cardiac arrest with the requirement of two CPR sessions. Her initial CT head did not show any acute intracranial pathology but there is some suggestion of mild early loss of the collins/white matter differentiation. - Patient is unresponsive post arrest. She appears to have minimal brain stem reflexes currently. Patient is not a candidate for hypothermia protocol given her prolonged downtime as well as with her multiple cardiac arrests. She is also hemodynamically unstable and there is evidence of active bleeding via her endotracheal tube as well as her orogastric (OG) tube and per rectum. - Will, however, maintain normothermia at least 48 degrees after her arrest. - Will monitor patient's mental status and continue with Versed p.r.n. for sedation and for any myoclonic activity or shivers. Patient currently does not appear to have any positive brain stem reflexes Cardiac: Patient presented as an [id number]-siaxcqgp cardiac arrest. She initially was in pulseless electrical activity (PEA) arrest although she did have an episode of ventricular tachycardia (VT) in the emergency department. She did have mild troponins and likely with a component of demand ischemia after her cardiac arrest. There is a questionable component of sepsis given her leukocytosis and her positive COVID-19 test, and with infiltrate noted on chest x-ray, although this is likely due to her chest compressions and potential aspiration. Patient may potentially have a component of septic shock contributing as well as possible cardiogenic shock given cardiac arrest - Patient is on Levophed for vasopressor support. We will add vasopressin to maintain a mean arterial pressure (MAP) above 65. - Patient has severe lactic acidosis in the setting of her shock and cardiac arrest. Will continue to trend lactic acid. - Patient was given at least 2 liters of normal saline bolus. She will be started on fluids with bicarbonate infusion. - Will get echocardiogram and continue to trend cardiac enzymes. If evidence of reduced EF consider ionotropic support Pulmonary: Patient with acute hypoxemic respiratory failure in the setting of her cardiac arrest. She is intubated and on mechanical ventilation. Her chest x-ray does show some increased pulmonary vascular markings as well as some hazy opacity particularly in the left base. She does have bloody output from her endotracheal tube in the setting of her chest compressions and suspect she did also have an episode of aspiration as well and may potentially be developing aspiration pneumonia. Her COVID-19 was also positive, although it is unclear if this is a recent positive test or perhaps from a prior exposure and prior history of positive testing. - Patient does have metabolic acidosis with inappropriate respiratory acidosis. Will increase her respiratory rate and will follow ABGs. She is also severely hypoxic on 100% Fi02 likely in the setting of blood as well as aspiration and potentially also developing acute respiratory distress syndrome (ARDS). - Patient is on volume control currently. Given her persistent hypoxia she required bedside bronchoscopy which showed diffuse hemorrhage. Her vent settings were adjusted and she was placed on 480/28/18/100 - Continue with vent care with head of bed elevation and chlorhexidine mouthwash. - Continue with daily ABGs and chest x-rays while intubated. - Will start patient on broad-spectrum antibiotics with Zosyn particularly for potential aspiration. patient was given dexamethasone but will change to hydrocortisone given shock GI: Patient with orogastric (OG) tube in place with some maroon-colored output with suctioning and melena turning to more bright red blood per rectum. Given her shock suspect component of ischemic bowel contributing to ongoing GIB - Will continue orogastric (OG) tube to low wall intermittent suction and keep patient NPO. - Will start Protonix twice a day and continue to monitor output. - The patient also has transaminitis likely in the setting of shocked liver given her cardiac arrest and shock. Will continue to trend liver function tests (LFTs). Renal/Endo: Patient with acute kidney injury (LUPE) likely in a secondary of her shock. She is also hyperkalemic some of which is due to her acidosis as well as potentially from her cardiac arrest. She was given calcium as well as bicarbonate in the emergency department. - Will continue with bicarbonate infusion and follow up repeat renal panel. Will also give insulin and D50 for her hyperkalemia and will monitor potassium. - Kemp is placed and will monitor in's and out's and renal function and also continue to renally dose medications. - Patient was hyperglycemic. Will check a fingerstick glucose every 4 hours and start sliding scale coverage if needed. - Patient's TSH was elevated. Will check a free T4 but suspect sick euthyroid syndrome. Heme: Patient with evidence of active hemorrhage in lungs as well as acute GIB. Will check coags as there is concern for DIC given ongoing bleeding due to her critical illness. if fibrinogen is less than 100 will give cryoprecipitate. Due to ongoing bleeding will transfuse 1 unit PRBC although no significant change yet in Hg and give 2 FFP while awaiting coags. Deep vein thrombosis (DVT) prophylaxis, TEDs and SCDs. GI prophylaxis: PPI. CODE STATUS: Full code. Patient has a number for her mother in the chart; however, upon calling we are unable to get voice mail. We do not have any other contact information brought in by EMS but will continue to attempt to find next-of-kin to contact. Total critical care time spent not including procedures: Approximately 2 hour 15 minutes. MTDD
--- NOTE | 2021-01-14 09:34 | REP ---
INDICATION: intubated, covid +. COMPARISON: Comparison supine portable chest x-ray is from 10:30 p.m. on 13 January 2021. TECHNIQUE: Portable upright AP chest radiograph. FINDINGS: Endotracheal tube is seen in good position on today's chest x-ray at the level of the proximal clavicles. NG tube enters the left upper quadrant. Monitoring electrodes are noted. There is some improvement in aeration of the left lung. There is residual infiltrate in the left lower lobe and left perihilar region. There is parenchymal opacity above the minor fissure in the right upper lobe and there is an infiltrate in the right lower lobe on today's chest x-ray. A dextroconvex curve is seen in the thoracic spine.. IMPRESSION: Bilateral parenchymal pulmonary infiltrates consistent with pneumonia. Bilateral lower lobe and right upper lobe. Endotracheal and nasogastric tubes in good position.. <Electronically signed by Austin Roblero > 01/14/21 0931
[2021-01-14] MEDS: CHLORHEXIDINE GLUCONATE 0.12 % 15ML UDC (PERIDEX ORAL RINSE) MT SCH ×2 (10:45→21:18)
[2021-01-14 11:43] LABS: CK-MB VALUE MASS 42.7 NG/ML (<3.6); MB/CK RELATIVE INDEX 4.64 (< OR =4)
[2021-01-14] MEDS ORDERED: propofoL 1,000 MG in IV 1 EA IV SCH ×3 (12:00)
[2021-01-14] MEDS ORDERED: DEXTROSE 50% 50 ML SYRINGE IV PRN (12:45)
[2021-01-14] MEDS ORDERED: GLUCAGON INJ 1MG VIAL SC PRN (12:45)
[2021-01-14] MEDS ORDERED: GLUCOSE 4GM CHEW TABLET PO PRN (12:45)
--- NOTE | 2021-01-14 12:58 | RO ---
OPERATIVE NOTE DATE OF OPERATION: 01/14/2021 PREOPERATIVE DIAGNOSIS: Acute hypoxemic respiratory failure. POSTOPERATIVE DIAGNOSIS: Acute hypoxemic respiratory failure with pulmonary hemorrhage. PROCEDURE: Bedside bronchoscopy. SURGEON: Jen Portillo MD. INDICATION: Hypoxia. CONSENT: Due to the emergent nature of the procedure, consent was implied. PROCEDURE SUMMARY: Patient had a bedside bronchoscopy performed using the GlideScope bronchoscopy system. Patient was given 2 mg of Versed for sedation prior to the procedure. Patient was noted to have persistent desaturation despite being on the ventilator at 100% FiO2 with PEEP pressures being increased up to 18. She was having some blood clots with suctioning, and even with saline lavage and Ambu bagging for ventilation, her O2 sats were only able to come up into the 80s. Patient, therefore, had the bedside bronchoscopy procedure performed. She did have the bronchoscopy adapter placed on her endotracheal tube. Cetacaine spray was used for anesthetic and for lubrication of the bedside bronchoscopy. Respiratory was present for procedure to provide bag ventilation during bronchoscopy. Patient's ET tube appeared in good position. The liss was visualized and was sharp. There were no significant endobronchial lesions noted. Patient did have bright red blood on suctioning from the right upper lobe and right lower lobe as well as the left upper lobe and left lower lobe. She did not have any thick mucous plugs or clots. Post bronchoscopy patient's O2 sats did improve into the low 90s. Patient tolerated the procedure well without any worsening hemodynamic compromise. MTDD
--- NOTE | 2021-01-14 13:20 | CCN ---
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 The patient was noted to have evidence of DIC with coagulopathy and a fibrinogen level that was less than 60. She did receive cryoprecipitate overnight as well as the 2 units of FFP. She did have some improvement in her coagulopathy this morning although her fibrinogen continued to be low and she continued to have evidence of active ongoing bleeding with bright red blood in the rectal tube as well as with more maroon color output in the OG tube. The patient was also having episodes of hypotension this morning and was given additional fluid boluses. She was also ordered for an additional 1 unit of packed red blood cells given her ongoing blood loss as well as additional cryoprecipitate this morning. Her fluids were also adjusted as her metabolic acidosis and her lactic acidosis did improve slightly Patient likely has persistent elevated lactic acidosis from bowel ischemia and also poor elimination from her acute liver failure and renal failure. Her ABGs have also shown improvement in her respiratory acidosis as well. The patient was having issues initially upon arrival to the ICU with oxygenation. Post-bedside bronchoscopy she did have some improvement in her oxygenation and this morning has had less bloody output from her endotracheal tube. We have been able to wean her down on her FiO2 and her PEEP requirements slightly this morning. She is, however, still requiring significant amounts of Levophed and vasopressin and is on at least 20 of Levophed and still on vasopressin to maintain her MAPs. She was started on stress dose steroids given her ongoing shock. The patient was also noted to have increasing troponins likely with a type II myocardial infarction. She did have an echocardiogram performed this morning, the results of which are still pending. The patient is also noted to have worsening renal function and minimal output in her Kemp catheter. Given her hemodynamic instability, however, she may have difficulty tolerating any renal replacement therapy including CVVH. At this time she does not have persistent electrolyte abnormalities or worsening acidosis or worsening fluid overload to require emergent dialysis. However, would need to closely monitor her clinically. On exam today with improvement in her acidosis as well as in her oxygenation, the patient had a repeat neurologic exam performed. She did not have any evidence of brainstem reflexes on exam. She did not have any response to any painful stimuli. Her pupils are also dilated and fixed, not reactive to light bilaterally. The patient also has absent doll's eye reflex. She also has no corneal reflex and no gag or cough reflex. On the ventilator the patient does not appear to be taking any additional respiratory breaths above the set rate. We initially did not have contact information for patient's parents. The police were able to get her mother's address and we were able to update her mother and father this morning. Her mother Sharon Whitfield and her father Sheldon Prince were updated as to her condition. After extensive discussion with the mother and the father about her poor neurologic prognosis, the decision was made for the patient to be DO NOT RESUSCITATE. They have also stressed that given her ongoing issues with drug abuse and based on what would be suspected to be her previous wishes that she would not have wanted to remain prolonged on a ventilator. We also discussed that there is a clinical suspicion currently for brain . However, we are unable to perform the testing for brain criteria given her hypothermia currently as well as her acidosis and hemodynamic instability. The patient's family, however, is considering palliative measures including a palliative extubation and comfort measures only. In the meantime we will continue with the rest of her plan of care as detailed previously and with any updated plan from this morning. FLACO
[2021-01-14] MEDS: HYDROCORTISONE 100 MG/2 ML VIAL (J1720 PER 1) IV SCH ×2 (13:48→21:18)
[2021-01-14] MEDS: HumaLOG INSULIN (NovoLOG) PER UNIT SC SCH ×2 (13:48→17:38)
[2021-01-14 14:05] LABS: ABG pH (ARTERIAL) 7.389 UNITS (7.350-7.450)
[2021-01-14 14:06] LABS: ABG BASE EXCESS -6.1 (-2.0-2.0); ABG HCO3 17.8 MEQ/L (22.0-26.0); ABG O2 SATURATION 98.8 % (95.0-99.0); ABG PARTIAL PRESSURE CO2 30.1 mmHg (35.0-45.0); ABG PARTIAL PRESSURE O2 133.1 mmHg (75.0-100.0); ABG STANDARD HCO3 19.5 MEQ/L (22.0-26.0); ABG TOTAL CO2 18.7 MEQ/L (22.0-29.0)
[2021-01-14 14:15] LABS: HEMATOCRIT 30.2 % (36.0-47.0); MEAN CORPUSCULAR HEMOGLOBIN 28.2 pg (27.0-33.0); MEAN CORPUSCULAR HGB CONC 33.1 g/dl (32.0-36.5); MEAN CORPUSCULAR VOLUME 85.3 fl (80.0-96.0); PLATELET COUNT, AUTOMATED 126 10^3/uL (150-450); RED BLOOD COUNT 3.54 10^6/uL (4.00-5.40); WHITE BLOOD COUNT 12.7 10^3/uL (4.0-10.0)
[2021-01-14 14:26] LABS: ATYPICAL LYMPH 1 % (0-5); LYMPHOCYTES 4 % (16-44); METAMYELOCYTES 1 % (0-0); MONOCYTES 5 % (0-5); NEUTROPHILS 88 % (28-66)
[2021-01-14 14:27] LABS: PLATELET ESTIMATE DECREASED (NORMAL)
--- NOTE | 2021-01-14 16:33 | ECGEPIP ---
[facility] - ED Test Date: 2021-01-13 Pat Name: AMANDA FARIAS Department: Room: [place] [address] Gender: Female Residential Glazier: ANNIE : 1995 Requested By: Pietro Parmar Order Number: [id number] Reading MD: Sundeep Ivy Measurements Intervals [place] Rate: 80 P: 83 [place]: 122 QRS: 95 QRSD: 100 T: 62 QT: 422 QTc: 486 Interpretive Statements Normal sinus rhythm Prolonged QTc interval Nonspecific ST-T wave abnormalities Comparison tracing not on file Electronically Signed on 01-14-2021 16:32:56 EST by Sundeep Ivy
[2021-01-14 19:22] LABS: HEMATOCRIT 33.4 % (36.0-47.0); HEMOGLOBIN 11.1 g/dl (12.0-15.5); MEAN CORPUSCULAR HEMOGLOBIN 28.5 pg (27.0-33.0); MEAN CORPUSCULAR HGB CONC 33.2 g/dl (32.0-36.5); MEAN CORPUSCULAR VOLUME 85.9 fl (80.0-96.0); PLATELET COUNT, AUTOMATED 120 10^3/uL (150-450); RED BLOOD COUNT 3.89 10^6/uL (4.00-5.40)
[2021-01-14 19:29] LABS: INR 1.83; PROTHROMBIN TIME 21.6 SECONDS (12.5-14.3)
[2021-01-14 19:30] LABS: PARTIAL THROMBOPLASTIN TIME 37.1 SECONDS (24.2-38.5)
[2021-01-14 19:51] LABS: CALCIUM LEVEL 7.2 MG/DL (8.5-10.1); CREATININE FOR GFR 3.04 MG/DL (0.55-1.30); GLOMERULAR FILTRATION RATE 19.9 (>60); POTASSIUM SERUM 3.7 MEQ/L (3.5-5.1); TROPONIN I 16.8 NG/ML (< 0.10)
[2021-01-14 19:54] LABS: FIBRINOGEN < 60 MG/DL (221-452)
[2021-01-14] MEDS ORDERED: CALCIUM GLUCONATE 1,000 MG in D5W MINI-BAG PLUS 100 ML IV ONE (21:00)
[2021-01-15] VITALS (27 sets, daily range): BP systolic 75–167; BP diastolic 43–107
[2021-01-15] MEDS: HumaLOG INSULIN (NovoLOG) PER UNIT SC SCH ×4 (00:15→18:00)
[2021-01-15 04:46] LABS: HEMATOCRIT 30.5 % (36.0-47.0); HEMOGLOBIN 10.4 g/dl (12.0-15.5); MEAN CORPUSCULAR HEMOGLOBIN 28.4 pg (27.0-33.0); MEAN CORPUSCULAR HGB CONC 34.1 g/dl (32.0-36.5); MEAN CORPUSCULAR VOLUME 83.3 fl (80.0-96.0); RED BLOOD COUNT 3.66 10^6/uL (4.00-5.40); WHITE BLOOD COUNT 25.1 10^3/uL (4.0-10.0)
[2021-01-15 05:09] LABS: PLATELET COUNT, AUTOMATED 97 10^3/uL (150-450)
[2021-01-15] MEDS: HYDROCORTISONE 100 MG/2 ML VIAL (J1720 PER 1) IV SCH ×3 (05:10→20:01)
[2021-01-15] MEDS: LACRILUBE (AKWA TEARS) OPHTH OINT 3.5 GM OU PRN (05:11)
[2021-01-15 05:13] LABS: ATYPICAL LYMPH 11 % (0-5); LYMPHOCYTES 10 % (16-44); MONOCYTES 2 % (0-5); NEUTROPHILS 71 % (28-66)
[2021-01-15 05:14] LABS: PLATELET ESTIMATE DECREASED (NORMAL); TOXIC VACUOLATION 1+
[2021-01-15 05:44] LABS: ALBUMIN 2.1 GM/DL (3.2-5.2); BILIRUBIN,TOTAL 0.8 MG/DL (0.2-1.0); CREATININE FOR GFR 3.74 MG/DL (0.55-1.30); GLOMERULAR FILTRATION RATE 15.7 (>60); MAGNESIUM LEVEL 1.7 MG/DL (1.8-2.4); PHOSPHORUS LEVEL 4.9 MG/DL (2.5-4.9); POTASSIUM SERUM 3.9 MEQ/L (3.5-5.1); TOTAL PROTEIN 4.5 GM/DL (6.4-8.2)
[2021-01-15 05:44] LABS: ABG HCO3 21.4 MEQ/L (22.0-26.0); ABG PARTIAL PRESSURE CO2 32.1 mmHg (35.0-45.0); ABG PARTIAL PRESSURE O2 77.4 mmHg (75.0-100.0); ABG STANDARD HCO3 22.7 MEQ/L (22.0-26.0); ABG TOTAL CO2 22.4 MEQ/L (22.0-29.0); ABG pH (ARTERIAL) 7.442 UNITS (7.350-7.450)
[2021-01-15] MEDS: CHLORHEXIDINE GLUCONATE 0.12 % 15ML UDC (PERIDEX ORAL RINSE) MT SCH ×2 (08:14→20:03)
[2021-01-15] MEDS: PANTOPRAZOLE 40MG VIAL (C9113 PER 1) IV SCH ×2 (08:15→20:01)
[2021-01-15] MEDS: PIPERACILLIN/TAZOBACTAM SOD 2.25 GM in D5W MINI-BAG PLUS 50 ML IV SCH ×3 (08:16→23:57)
[2021-01-15] MEDS: VASOPRESSIN INJ 20 UNITS in NS 499 ML IV SCH ×2 (08:19→22:34)
--- NOTE | 2021-01-15 08:23 | REP ---
INDICATION: intubated. COMPARISON: Portable chest 01/14/2021, 01/13/2021 TECHNIQUE: AP semi-erect portable FINDINGS: Endotracheal tube tip at the thoracic inlet almost 7 cm from the liss. There is a nasogastric tube coursing into the stomach and left upper quadrant, tip off the field. Heart and mediastinal contours are normal. There are bilateral patchy infiltrates in the lung fuchs with the right perihilar, left and right lower lung zone infiltrates slightly improved compared to yesterday's study. No gross effusion. No other findings or interval change. IMPRESSION: Endotracheal and nasogastric tubes as described with some improvement in the right perihilar and bilateral lower lung zone patchy infiltrates. No other change. <Electronically signed by Lencho Tang > 01/15/21 [id number]
[2021-01-15] MEDS: NOREPINEPHRINE BITARTRATE 8 MG in D5W 492 ML IV SCH ×2 (08:42→16:49)
[2021-01-15 09:18] LABS: INR 1.48; PROTHROMBIN TIME 18.2 SECONDS (12.5-14.3)
[2021-01-15 09:20] LABS: PARTIAL THROMBOPLASTIN TIME 32.7 SECONDS (24.2-38.5)
--- NOTE | 2021-01-15 09:40 | ECHO ---
DATE OF PROCEDURE: 01/14/2021 Age: 25 Gender: Female Height: 165 cm Weight: 106 kg REFERRING PHYSICIAN: Jen Portillo MD INDICATION: Cardiac arrest. MEASUREMENTS: IVS 0.7 cm LV 4.3 cm LVPW 0.6 cm LA 3.1 cm Aorta 3.3 cm IVC 2.2 cm DOPPLER MEASUREMENT Mitral E wave velocity 41 Mitral A wave 34 E prime septal 7.2 E prime lateral 7.6 FINDINGS: This study is of very limited technical quality with difficult visualization. The patient is intubated on a respiratory with difficulty positioning. Underlying sinus rhythm with ventricular rate of over 100 beats per minute. Left ventricle is of normal size. It was very poorly visualized, but does appear to be globally hypokinetic and septum appears dyskinetic. I estimate overall EF in the neighborhood of 40%. Right ventricle also appears dilated and hypokinetic. Both atria appear grossly normal. Aortic, mitral, and tricuspid valve were reasonably well seen and no gross abnormalities are noted. Pulmonic valve was not visualized. No pericardial effusion is noted. Inferior vena cava is dilated and there is no appreciable collapse with inspiration. Aortic root is normal. Aortic arch and abdominal aorta were not well seen. Doppler interrogation reveals competent aortic and mitral valves. There is mild tricuspid insufficiency. Calculated pulmonary artery pressure is at least in the 50s, corresponding to minimum moderate pulmonary hypertension. Mitral inflow pattern and tissue Doppler imaging of the mitral annulus revealed grade 2 diastolic dysfunction. CONCLUSIONS: 1. Study is of difficult technical quality with limited visualization. Underlying sinus tachycardia. 2. Normal LV size with global hypokinesis and septal dyskinesis and gross estimate of LVEF in the neighborhood of 40%. 3. Dilated right ventricle. 4. No significant valvular disease. 5. High central venous pressure and at least moderate pulmonary hypertension. MTDD
[2021-01-15] MEDS ORDERED: MAG SULF 1GM/100ML (MAG RUN) 1 GM in IV 1 EA IV ONE (10:15)
[2021-01-15 12:20] LABS: ABG BASE EXCESS -3.3 (-2.0-2.0); ABG HCO3 21.1 MEQ/L (22.0-26.0); ABG MODE OF VENT PRVC; ABG O2 LITER FLOW 100; ABG O2 SATURATION 99.7 % (95.0-99.0); ABG PARTIAL PRESSURE CO2 35.2 mmHg (35.0-45.0); ABG PARTIAL PRESSURE O2 309.9 mmHg (75.0-100.0); ABG PATIENT RESP RATE 25 /MIN; ABG PEEP 8; ABG STANDARD HCO3 21.8 MEQ/L (22.0-26.0); ABG TIDAL VOLUME 460 cc; ABG TOTAL CO2 22.2 MEQ/L (22.0-29.0); ABG pH (ARTERIAL) 7.395 UNITS (7.350-7.450)
[2021-01-15 12:40] LABS: ABG BASE EXCESS -3.2 (-2.0-2.0); ABG O2 SATURATION 96.9 % (95.0-99.0); ABG PARTIAL PRESSURE O2 118.2 mmHg (75.0-100.0); ABG STANDARD HCO3 21.8 MEQ/L (22.0-26.0); ABG TOTAL CO2 26.8 MEQ/L (22.0-29.0)
[2021-01-15 12:40] LABS: ABG BASE EXCESS -4.2 (-2.0-2.0); ABG HCO3 22.4 MEQ/L (22.0-26.0); ABG O2 SATURATION 88.8 % (95.0-99.0); ABG PARTIAL PRESSURE CO2 48.3 mmHg (35.0-45.0); ABG PARTIAL PRESSURE O2 64.2 mmHg (75.0-100.0); ABG STANDARD HCO3 20.8 MEQ/L (22.0-26.0); ABG TOTAL CO2 23.9 MEQ/L (22.0-29.0); ABG pH (ARTERIAL) 7.285 UNITS (7.350-7.450)
[2021-01-15 12:41] LABS: ABG PARTIAL PRESSURE CO2 61.1 mmHg (35.0-45.0); ABG pH (ARTERIAL) 7.229 UNITS (7.350-7.450)
--- NOTE | 2021-01-15 14:52 | CCN ---
CRITICAL CARE NOTE DATE: 01/15/2021 SUBJECTIVE: Patient was seen and examined this morning during bedside rounds. Yesterday evening, patient did receive an additional unit of PRBC. She has had a total transfusion now of 3 units of PRBC. She did also in the evening yesterday receive an additional dose of cryoprecipitate as her fibrinogen continued to be less than 60. She has had considerable less output from her OG tube and appears to be more darker in color. Her rectal tube has also had less bloody output and appears to have more of a dark black or green color instead of the bright red color that it was previously noticing in the rectal tube. Patient's coags have also improved, and her fibrinogen this morning is now above 100. Yesterday evening, patient was noted to have some episodes of low grade fever. She was placed on a cooling blanket in an attempt to maintain normothermia. She was taken off of the cooling blanket early this morning. Patient continues to have minimal urine output in the Kemp catheter. She otherwise has not had any change in her neurologic status from yesterday. She has still not taken any additional spontaneous respirations on the ventilator. She also continues to not have any brain stem reflexes noted and no withdrawal to any painful stimuli in all four extremities. She also has not had any myoclonic activity or posturing. OBJECTIVE: VITALS: Temperature T-current 97.0, T-max 100.2. Pulse is 88. Respirations 26. Blood pressure 121/82. O2 sat 98% on the ventilator at 40% FiO2. Ins 7.9 liters, out 3.7 liters. GENERAL: Patient is intubated and not sedated. She is not responsive to any painful stimuli. HEENT: Normocephalic/atraumatic. Pupils are fixed and dilated at approximately 6 mm. There is moist mucous membranes noted. Patient has had no further epistaxis noted. NECK: Neck is thick and supple. Trachea is midline. No palpable cervical adenopathy. CARDIOVASCULAR: Regular rate and rhythm, normal S1 and S2. No appreciable murmurs. PULMONARY: There are coarse ventilator breath sounds bilaterally with occasional crackles. There is no significant wheezing noted now. There has also been minimal output on suctioning from the endotracheal tube and no further bloody output. ABDOMEN: Obese, soft, and nondistended. There is dark black-greenish output from the rectal tube now. EXTREMITIES: There is mild trace pitting edema in the lower extremities bilaterally in the feet. LABORATORY DATA: WBC 25.1, hemoglobin 10.4, platelets 97. Chemistries: Sodium 139, potassium 3.9, chloride 103, bicarb 24, BUN 39, creatinine 3.74, glucose 145. CK trended down to 110. AST and ALT trending down to 3645 and 1021. Magnesium is 1.7. Phosphorus increased to 4.9. Troponin trended down to 16.8. Albumin is 2.1. Lactic acid trended down to 3.4. ABG: pH 7.442, pCO2 32.1, pO2 77.4. IMAGING: Chest x-ray today shows the ET tube just between the head of the clavicle reportedly 7 cm above the liss. There is an OG tube in place coursing below the diaphragm. There has been some slight improvement in the right perihilar and in the lower lobe patchy opacities bilaterally compared to yesterday. Echocardiogram dated 01/14/2021: Study is of limited quality. There appears to be global hypokinesis with an EF of 40%. Right ventricle also appears dilated and hypokinetic. There does not appear to be any significant valvular pathology. There is no pericardial effusion noted. IVC appears somewhat dilated with minimal collapse with inspiration suggestive of elevated central venous pressure. There is at least moderate pulmonary hypertension noted. ASSESSMENT AND PLAN: Miss Prince is a 25-year-old female with a past medical history of substance abuse who presented as an out of hospital cardiac arrest. Patient was thought to have overdosed in the setting of heroin. She was found by EMS in PA arrest and did receive multiple doses of Narcan in the field as well as CPR. She did have brief ROSC in the field. However, upon arrival to the ED, patient was in PA arrest again and had an additional 15 minutes of CPR in the ED before achieving ROSC. She did also have an episode of ventricular tachycardia and had received one episode of defibrillation. Post arrest, patient was unresponsive without receiving any sedation. She was also hypotensive and was started on Levophed and then vasopressin for blood pressure support. She did have a central line placed by the ED physician as well as an arterial line which was only semi sterile. 1. Neuro: Patient with likely severe anoxic brain injury. Patient likely had a prolonged down time before EMS arrived as it had been more than three hours before someone had reported seeing her moving. Patient also had two episodes of cardiac arrest requiring CPR twice before achieving ROSC. Her initial head CT report did not show any acute intracranial pathology, but on my review, there is suggestion of mild early loss of the collins and white matter differentiation and some suggestion of early edema. a. Post arrest, patient previous severe electrolyte abnormalities as well as hypothermia has been corrected. Patient was also borderline febrile overnight and had required a cooling blanket. Her other issues including her coagulopathy has also been corrected. b. On neuro exam, patient continues to have no evidence of brainstem reflexes and has not been having any spontaneous respirations on the ventilator. Given her clinical status, there is suspicion for brain . Will consult Neurology and consider EEG per neurology. c. Will also perform apnea testing on the patient today for evaluation of potential brain . d. Patient has Versed ordered p.r.n. However, she had only received one dose of Versed when she first arrived to the hospital and after that has not received or required any further sedation. e. Will continue to attempt to maintain patient normothermic via means of Claudio Hugger or cooling blanket if needed. 2. Cardiac: Patient presented as an out of hospital cardiac arrest likely in the setting of drug overdose with opioids with severe hypoxic respiratory failure ultimately leading to her cardiac arrest. Post arrest, patient has been hypotensive in shock and has required Levophed and vasopressin. Her pressure requirements have been improving, and her lactic acidosis has also been improving. a. There was a possibility of cardiogenic shock given her elevated troponins likely secondary to a type 2 [place]. Her echo did show evidence of globally reduced EF on the left as well as evidence of right ventricular dysfunction and a degree of pulmonary hypertension as well as with elevated CVP. b. Patient's IV fluids were discontinued as she was noted on echo to appear to be more volume overloaded. Her lactic acid has continued to trend down, and her pressor requirements have also continued to trend down. c. Will continue with Levophed and vasopressin to maintain a MAP above 65. Will continue to wean down her Levophed. She was only on 6 mcg per minute this morning. d. If patient is having difficulty with weaning off of pressors and there is more suspicion of a cardiogenic shock contributing, could consider inotropic support. e. Patient was initially on dexamethasone which was changed to hydrocortisone for her shock. She will continue with hydrocortisone to receive a 48-72 hour dose at 50 mg q.8 hours. 3. Pulmonary: Patient with acute hypoxemic respiratory failure in the setting of her cardiac arrest. She also was noted to have evidence of pulmonary hemorrhaging in the setting of her coagulopathy and DIC. She has had significant improvement in her bloody secretions from the endotracheal tube as well as in her oxygenation. Patient did have a positive COVID-19 test on admission, although upon questioning patient's mother she had not been symptomatic when the mother had spoken to her, which she does routinely. This is likely an asymptomatic positive or from a previous infection and not related to her current medical issues. a. Patient's ABG does show improvement in her metabolic and respiratory acidosis. Will adjust her vent settings to maintain normocarbia given our concern for apneic testing. b. Patient is currently on PRVC, and her vent settings were adjusted to 460/25/8 and 40. c. Will continue with daily ABGs and chest x-rays while intubated. d. Continue with vent bundle care with head of bed elevation and chlorhexidine mouthwash. e. Patient had possible aspiration during her cardiac arrest. She was started on Zosyn for broad spectrum antibiotics. Her chest x-ray this morning does show some slight improvement particularly in the lower lobe opacities and in the right perihilar opacity. f. Will check a MRSA screen. 4. GI: Patient with evidence of active GI bleed on admission. She was having maroon colored output from the OG tube initially as well as more bright red blood output coming from her rectal tube. Patient was thought to have a component of ischemic bowel contributing to her GI bleed given her shock and severe lactic acidosis initially. a. With correction of her coagulopathy and DIC, her GI bleed has improved. She continues to have liquid output from her rectal tube, but it is more black/dark green in color. b. Will continue Protonix b.i.d. c. Patient also with evidence of shock liver secondary to her cardiac arrest. Her LFTs have been improving. d. Will continue patient n.p.o. with OG tube to low wall intermittent suction currently. 5. Renal/Endo: Patient with acute renal failure in the setting of her shock and cardiac arrest. Her metabolic acidosis as well as her hyperkalemia has resolved. Her bicarb infusion was discontinued yesterday evening. She continues to have worsening renal function although is not significantly uremic at this time. She is having very minimal output in her Kemp catheter, but she does not have any indications currently for emergent hemodialysis. a. Will continue to monitor her renal function and replete electrolytes as needed. b. Will continue monitoring ins and outs via Kemp. c. Will continue with finger stick glucose checks q.4 hours with sliding scale coverage. d. Patient did have a mildly elevated TSH on admission. However, it was likely due to sick euthyroid syndrome. Her free T4 is pending. 6. Heme: Patient with evidence of DIC on admission with severe coagulopathy and a fibrinogen level less than 60. She was also noted to have active bleeding with a GI bleed as well as with some pulmonary hemorrhage and with epistaxis. She was given a total now of 3 units of PRBC as well as two FFP and cryoprecipitate three times with reversal in her coagulopathy and improvement in her fibrinogen level now. Patient did have a higher hemoglobin target due to her active demand ischemia. a. Will continue to monitor CBC and transfuse as needed. Her platelets have been trending down slightly so we will closely monitor and transfuse platelets in particular if needed. 7. DVT prophylaxis: TEDS and SCDs. 8. GI prophylaxis: PPI. Code status: DNR, trial intubation TOTAL CRITICAL CARE TIME SPENT NOT INCLUDING ANY PROCEDURES: Approximately 1 hour and 55 minutes. MTDD
--- NOTE | 2021-01-15 14:56 | RO ---
PROCEDURE NOTE DATE OF TESTIN01/15/2021 PREOPERATIVE DIAGNOSIS: Cardiac arrest POSTOPERATIVE DIAGNOSIS: Cardiac arrest PROCEDURE: Apnea test. ATTENDING PHYSICIAN: Jen Portillo MD The patient had an apnea test performed due to suspicion of severe anoxic brain injury causing brain . The patient had presented initially with a cardiac arrest thought to be in the setting of an opioid overdose. Her U-tox on admission did show evidence of opioids as well as amphetamines. She was given multiple doses of Narcan in the field as well as in the ED for reversal of her opioid toxicity. She has not been on any sedation despite being on mechanical ventilation except for one p.r.n. dose of 2mg versed when she had initially arrived to the hospital. The patient has not been on any paralytics. Her previous metabolic and respiratory acidosis has been treated and resolved. She does not have any severe electrolyte or endocrine abnormality. She did have mildly elevated TSH though to be in the setting of a sick euthyroid syndrome with a a normal Free T4 level and no hx of thyroid disease. The patient was initially hypothermic upon arrival. She was warmed with a Claudio Hugger and overnight then had a low grade fever as well, requiring a cooling blanket. This morning, she was normothermic in temperature. The patient was also in shock initially and had been on Levophed and vasopressin for blood pressure support. She has had improvements in her vasopressor requirements and this morning is only on pressors with Levophed at 6 mcg per minute and vasopressin. Her MAPs have been maintained, consistently above 65 and usually are in the 70-80 range, in particular this morning was above 80 for her MAP. She has not had any spontaneous respirations noted on the ventilator. The patient had a clinical neurologic exam this morning which showed that her pupils remained fixed and dilated at approximately 6-7 mm. She did not have any corneal reflex and she also did not have any oculocephalic reflex noted. The patient was also noted to have an absent gag reflex and no cough reflex to tracheal suctioning. She had no motor response to noxious stimuli in all four limbs and no facial movement to noxious stimuli as well. The patient also had oculovestibular reflex testing performed this morning which was negative. DESCRIPTION OF PROCEDURE: The patient then had the apnea testing done with respiratory therapy as well as her ICU nurse in attendance. The patient's baseline ABG did show her pCO2 was in the normocarbia range. She was preoxygenated with 100% FiO2 for more than 10 minutes and her baseline PAO2 was above 200 mmHg. The patient was given oxygen via a catheter to the level of the liss at 8 liters a minute. She did have a continuous pulse oximeter on as well and continuous cardiac monitoring as well as continuous blood pressure monitoring with her arterial waveform tracing. The patient was disconnected from the ventilator and upon observation during the entirety of her apneic test, the patient did not have any observed respiratory movements noted. An ABG was drawn at approximately 4 minute jon and we had attempted to wait until the entire 8 minutes for the apnea test. However, around the 7-8 minute jon, the patient started becoming hypotensive and had desaturated down to 88% and so the apnea test was completed at that time and she was placed back on the ventilator. We had attempted to draw an ABG just prior to placing patient back on the ventilator. However, there were issues with her A-line drawback at that time and so the ABG drawn around the 8 minute jon was done after patient was placed back on the ventilator. Her ABG, however, from the 4 minute jon of the apnea did show her pCO2 had increased already to 61.1 which is confirmatory of a positive apnea test. The patient is awaiting a confirmatory exam by neurologist with possible EEG if needed ordered by neurology to confirm certification of brain . The patient's mother had been notified that we were in the process of testing and certifying patient for brain . [facility]
[2021-01-15 17:26] LABS: HEMATOCRIT 27.5 % (36.0-47.0); HEMOGLOBIN 9.4 g/dl (12.0-15.5); MEAN CORPUSCULAR HEMOGLOBIN 28.5 pg (27.0-33.0); MEAN CORPUSCULAR HGB CONC 34.2 g/dl (32.0-36.5); MEAN CORPUSCULAR VOLUME 83.3 fl (80.0-96.0); WHITE BLOOD COUNT 22.9 10^3/uL (4.0-10.0)
[2021-01-15 17:39] LABS: PLATELET COUNT, AUTOMATED 74 10^3/uL (150-450)
[2021-01-15 17:54] LABS: CALCIUM LEVEL 7.2 MG/DL (8.5-10.1); CREATININE FOR GFR 4.44 MG/DL (0.55-1.30); FREE T4 1.29 NG/DL (0.76-1.46); GLOMERULAR FILTRATION RATE 12.9 (>60); MAGNESIUM LEVEL 1.9 MG/DL (1.8-2.4); POTASSIUM SERUM 4.3 MEQ/L (3.5-5.1)
[2021-01-15 19:10] LABS: ATYPICAL LYMPH 2 % (0-5); LYMPHOCYTES 5 % (16-44); METAMYELOCYTES 2 % (0-0); MONOCYTES 3 % (0-5); NEUTROPHILS 57 % (28-66); PLATELET ESTIMATE DECREASED (NORMAL)
[2021-01-15 20:26] LABS: TROPONIN I 2.12 NG/ML (< 0.10)
[2021-01-16] VITALS (16 sets, daily range): BP systolic 98–166; BP diastolic 53–141
[2021-01-16] MEDS: HumaLOG INSULIN (NovoLOG) PER UNIT SC SCH ×2 (00:02→05:45)
[2021-01-16 04:36] LABS: HEMATOCRIT 25.2 % (36.0-47.0); HEMOGLOBIN 8.5 g/dl (12.0-15.5); MEAN CORPUSCULAR HEMOGLOBIN 28.4 pg (27.0-33.0); MEAN CORPUSCULAR HGB CONC 33.7 g/dl (32.0-36.5); MEAN CORPUSCULAR VOLUME 84.3 fl (80.0-96.0); RED BLOOD COUNT 2.99 10^6/uL (4.00-5.40); WHITE BLOOD COUNT 18.9 10^3/uL (4.0-10.0)
[2021-01-16 04:41] LABS: PLATELET COUNT, AUTOMATED 59 10^3/uL (150-450)
[2021-01-16 05:01] LABS: ATYPICAL LYMPH 1 % (0-5); LYMPHOCYTES 8 % (16-44); METAMYELOCYTES 4 % (0-0); NEUTROPHILS 70 % (28-66); PLATELET ESTIMATE DECREASED (NORMAL)
[2021-01-16 05:05] LABS: ALBUMIN 2.1 GM/DL (3.2-5.2); BILIRUBIN,TOTAL 0.8 MG/DL (0.2-1.0); CREATININE FOR GFR 5.4 MG/DL (0.55-1.30); GLOMERULAR FILTRATION RATE 10.3 (>60); POTASSIUM SERUM 3.6 MEQ/L (3.5-5.1); TOTAL PROTEIN 4.8 GM/DL (6.4-8.2)
[2021-01-16] MEDS: NOREPINEPHRINE BITARTRATE 8 MG in D5W 492 ML IV SCH (05:38)
[2021-01-16] MEDS: HYDROCORTISONE 100 MG/2 ML VIAL (J1720 PER 1) IV SCH (05:45)
[2021-01-16] MEDS: VASOPRESSIN INJ 20 UNITS in NS 499 ML IV SCH (06:36)
[2021-01-16 06:37] LABS: ABG BASE EXCESS -3.4 (-2.0-2.0); ABG HCO3 20.1 MEQ/L (22.0-26.0); ABG O2 SATURATION 98.6 % (95.0-99.0); ABG PARTIAL PRESSURE CO2 31.3 mmHg (35.0-45.0); ABG PARTIAL PRESSURE O2 127.7 mmHg (75.0-100.0); ABG STANDARD HCO3 21.6 MEQ/L (22.0-26.0); ABG pH (ARTERIAL) 7.425 UNITS (7.350-7.450)
--- NOTE | 2021-01-16 08:22 | REP ---
INDICATION: intubated. COMPARISON: 01/15/2021, 01/14/2021 TECHNIQUE: AP portable semi-erect FINDINGS: The nasogastric tube and endotracheal tubes are unchanged. Lungs adequately inflated the. Slight worsening of the bilateral perihilar and lower lobe on lung zone patchy infiltrates compared to yesterday's study. No gross effusion. Cardiomediastinal silhouette is unchanged. No definite effusion but posterior lower lung zones would be obscured on this portable projection which could obscure smaller effusions. IMPRESSION: 1. Lines and tubes unchanged. 2. Slight increase in appearance of bilateral perihilar and infrahilar lower lung zone infiltrates compared to yesterday. <Electronically signed by Lencho Tang > 01/16/21 [id number]
[2021-01-16] MEDS: LACRILUBE (AKWA TEARS) OPHTH OINT 3.5 GM OU PRN (08:26)
[2021-01-16] MEDS: PANTOPRAZOLE 40MG VIAL (C9113 PER 1) IV SCH (08:26)
[2021-01-16] MEDS: PIPERACILLIN/TAZOBACTAM SOD 2.25 GM in D5W MINI-BAG PLUS 50 ML IV SCH (08:26)
[2021-01-16] MEDS: CHLORHEXIDINE GLUCONATE 0.12 % 15ML UDC (PERIDEX ORAL RINSE) MT SCH (08:26)
--- NOTE | 2021-01-16 10:04 | CR ---
CONSULTATION DATE OF CONSULTATION: 01/15/2021 HISTORY OF PRESENTING ILLNESS: The patient is a 25-year-old female with a past medical history significant for bipolar disorder, history of polysubstance drug abuse, who presented to [facility] after an out of hospital cardiac arrest. The patient has a history of drug use with Jacqui and use of heroin earlier in that day. Patient was admitted on 01/14/2021. At that time, her pupils were fixed and nonreactive. The patient went into an episode of pulseless electrical activity. Cardiopulmonary resuscitation (CPR) was performed after five rounds of epinephrine as well as five rounds of Narcan, a gram of calcium chloride, and one ampule of sodium bicarbonate through an interosseus source, the patient was intubated in the field, and reportedly had received return of spontaneous circulation after approximately 15-20 minutes of CPR. The patient was at home between 6 and 9 p.m. and during that time it is unclear how long she was down for. She is COVID positive and is currently intubated in the intensive care unit (ICU) off of all sedation. The patient unfortunately has not demonstrated any spontaneous movements. She has had loss of all brainstem functions. Earlier today apnea test was performed and for 8 minutes the patient did not have any spontaneous breaths. Her pupils are fixed, round, corneal reflexes are absent, gag reflex is absent, deep suction does not produce a cough or gag, doll's eye is negative, cold calorics are negative, the patient has no movement to noxious stimuli, there is no myoclonus noted. EEG was ordered, however could not be obtained. Repeat head CT was ordered but could not be obtained due to the patient's COVID positive finding and lack of equipment to transfer the patient safely down to the CT scanner without contaminating the rest of the hospital with COVID-19 aerosol virus particles. The patient meets criteria for clinical brain . She went through a phase of hypothermia, then fevers, followed by cooling, she is normotensive for over 24 hours now without any neurological activity. REVIEW OF SYSTEMS: Unobtainable. PAST MEDICAL HISTORY: Bipolar disorder, polysubstance abuse, obesity. FAMILY HISTORY: Unobtainable. ALLERGIES: No known drug allergies. SOCIAL HISTORY: Patient abuses drugs including heroin and history of tobacco use, nicotine dependence. CT scan of the head on initial admission did not reveal any acute findings as per the radiologist. Blood pressure has been 104/60, mean arterial pressure (MAP) of 77, temperature is 95.1, FiO2 is 40%, respiratory rate is 25, the patient does not breathe over the ventilator, oxygenation 99% on the ventilator. The patient's pupils are round, nonreactive, doll's eyes are negative, corneal reflexes are absent, gag and coughing reflexes are absent, cold calorics are absent, the apnea test is positive, the patient does not have any spontaneous movements in either limb of the upper or lower extremities to pain, Babinski signs are mute, tone is flaccid. Rest of neurological examination not possible due to the patient's current state of health. Patient is completely off sedation while intubated. There is no facial grimacing to noxious stimuli to the face intranasal probe with Q-tip. ASSESSMENT: 25-year-old female with suspected heroin abuse overdose status post cardiac arrest status post anoxic brain injury with catastrophic findings of absent brain stem function. Patient meets criteria for clinical brain . EEG at this point would not add any further information to alter course of treatment management. Patient's mother it seems is considering comfort measures and withdrawal off respirator. Continue supportive care until then. MTDD
--- NOTE | 2021-01-16 13:06 | DS.PDOC ---
Discharge Summary General Date of Admission Jan 14, 2021 at 00:00 Date of Discharge 01/16/21 Discharge Summary PROCEDURES PERFORMED DURING STAY: Right radial arterial line, femoral triple lumen placement, bedside bronchoscopy ADMITTING DIAGNOSES: 1. Cardiac arrest 2. Respiratory failure 3. Anoxic brain injury 4. Metabolic Anion gap acidosis 5. Acute renal failure 6. Demand ischemia with cardiogenic shock 7. Sepsis, aspiration pneumonia 8. Acute GIB 9. Coagulopathy and thrombocytopenia 10. Shock liver DISCHARGE DIAGNOSES: 1. Cardiac arrest 2. Respiratory failure 3. Anoxic brain injury 4. Metabolic Anion gap acidosis 5. Acute renal failure 6. Demand ischemia with cardiogenic shock 7. Sepsis, aspiration pneumonia 8. Acute GIB 9. Coagulopathy and thrombocytopenia 10. Shock liver COMPLICATIONS/CHIEF COMPLAINT: Cardiac Arrest. HISTORY OF PRESENT ILLNESS: Ms. Prince is a 25-year-old female with a past medical history of obesity and bipolar disorder, and history of drug abuse who was brought in by EMS after an [id number] cardiac arrest. Patient had a previous history of drug use with Jacqui and reportedly was at a drug house earlier today where she had used heroin instead. Patient was last known to be seen to be moving somewhat on a bed around 6 p.m. EMS arrived sometime around 9 p.m. after she was found to be non-responsive. In the field, she was reportedly in pulseless electrical activity (PEA) arrest and had CPR performed receiving 5 rounds of epinephrine as well as 5 rounds of Narcan, a gram of calcium chloride and one amp of sodium bicarbonate. She had intraosseous (IO) placed in the left tibia in the field and was also intubated in the field by EMS. She reportedly had received return of spontaneous circulation (ROSC) after approximately 15-20 minutes of CPR. Upon arrival to the emergency room however, the patient was in pulseless electrical activity (PEA) on the monitor and CPR was started again. She was given additional Narcan as well as two rounds of epinephrine before she was found to be in ventricular tachycardia on the monitor. She was defibrillated once and then noted to have return of spontaneous circulation (ROSC). She was hypotensive post arrest and started on Levophed and had a femoral central line placed in the emergency department by the emergency department physician as well as a right radial arterial line. The approximate CPR time in the emergency room was an additional 11-15 minutes. Post cardiac arrest, the patient has been unresponsive. She has not received any sedation and she has no purposeful movements, and is not withdrawing to painful stimuli. The patient is also hypoxic and she does have pat blood output from her ET tube. She also has more dark maroon output from her OG tube to suction. She appeared to have some evidence of bloody vomitus on her face as well and there was a potential for more traumatic intubation in the field. The patient's respiratory rate on the ventilator in the emergency department was increased from 22 to 27 given her respiratory acidosis. The patient was also started on bicarbonate infusion in the emergency department and given an additional gram of calcium, and the patient was transferred to the ICU for further management. HOSPITAL COURSE: The patient was noted to have evidence of DIC with coagulopathy and a fibrinogen level that was less than 60. She did receive cryoprecipitate as well as FFP and received several units of PRBC for her active GIB. Patient did have elevated lactic acidosis liekely from some degree of bowel ischemia and also poor elimination from her acute liver failure and renal failure. Patient GIB and coagulopathy improved and with IVF and pressors her lactic acidosis and ABGs have also shown improvement. The patient was having issues initially upon arrival to the ICU with oxygenation. Post-bedside bronchoscopy she did have some mprovement in her oxygenation and had less bloody output from ETT. We have been able to wean her down on her FiO2 and her PEEP requirements. She was started on stress dose steroids given her ongoing shock. She was also on broad spectrum antibiotics for possibel aspiration pneumonia. The patient was also noted to have increasing troponins likely with a type II myocardial infarction and her ECHO did show evidence of reduced cardiac function and likely component cardiogenic shock. Her pressor requirements did improve however and her MAPs were able to be consistently above 65. Patient did have worsening renal function howoever she did have any severe uremia or persistent electrolyte abnormalities or worsening acidosis or worsening fluid overload to require emergent dialysis. We initially did not have contact information for patient's parents. The police were able to get her mother's address and we were able to update her mother and father this morning. Her mother Sharon Whitfield and her father Sheldon Prince were updated as to her condition. After extensive discussion with the mother and the father about her poor neurologic prognosis, the decision was made for the patient to be DO NOT RESUSCITATE. They have also stressed that given her ongoing issues with drug abuse and based on what would be suspected to be her previous wishes that she would not have wanted to remain prolonged on a ventilator. The patient then had an apnea test performed due to suspicion of severe anoxic brain injury causing brain . The patient had presented initially with a cardiac arrest thought to be in the setting of an opioid overdose. Her U-tox on admission did show evidence of opioids as well as amphetamines. She was given multiple doses of Narcan in the field as well as in the ED for reversal of her opioid toxicity. She has not been on any sedation despite being on mechanical ventilation except for one p.r.n. dose of 2mg versed when she had initially arrived to the hospital. The patient has not been on any paralytics. Her previous metabolic and respiratory acidosis has been treated and resolved. She does not have any severe electrolyte or endocrine abnormality. She did have mildly elevated TSH though to be in the setting of a sick euthyroid syndrome with a a normal Free T4 level and no hx of thyroid disease. The patient was initially hypothermic upon arrival. She was warmed with a Claudio Hugger and overnight then had a low grade fever as well, requiring a cooling blanket. This morning, she was normothermic in temperature. The patient was also in shock initially and had been on Levophed and vasopressin for blood pressure support. She has had improvements in her vasopressor requirements and this morning is only on pressors with Levophed at 6 mcg per minute and vasopressin. Her MAPs have been maintained, consistently above 65 and usually are in the 70-80 range, in particular this morning was above 80 for her MAP. She has not had any spontaneous respirations noted on the ventilator. The patient had a clinical neurologic exam this morning which showed that her pupils remained fixed and dilated at approximately 6-7 mm. She did not have any corneal reflex and she also did not have any oculocephalic reflex noted. The patient was also noted to have an absent gag reflex and no cough reflex to tracheal suctioning. She had no motor response to noxious stimuli in all four limbs and no facial movement to noxious stimuli as well. The patient also had oculovestibular reflex testing performed this morning which was negative. DESCRIPTION OF PROCEDURE: The patient then had the apnea testing done with respiratory therapy as well as her ICU nurse in attendance. The patient's baseline ABG did show her pCO2 was in the normocarbia range. She was preoxygenated with 100% FiO2 for more than 10 minutes and her baseline PAO2 was above 200 mmHg. The patient was given oxygen via a catheter to the level of the liss at 8 liters a minute. She did have a continuous pulse oximeter on as well and continuous cardiac monitoring as well as continuous blood pressure monitoring with her arterial waveform tracing. The patient was disconnected from the ventilator and upon observation during the entirety of her apneic test, the patient did not have any observed respiratory movements noted. An ABG was drawn at approximately 4 minute jon and we had attempted to wait until the entire 8 minutes for the apnea test. However, around the 7-8 minute jon, the patient started becoming hypotensive and had desaturated down to 88% and so the apnea test was completed at that time and she was placed back on the ventilator. We had attempted to draw an ABG just prior to placing patient back on the ventilator. However, there were issues with her A-line drawback at that time and so the ABG drawn around the 8 minute jon was done after patient was placed back on the ventilator. Her ABG, however, from the 4 minute jon of the apnea did show her pCO2 had increased already to 61.1 which is confirmatory of a positive apnea test. The patient is awaiting a confirmatory exam by neurologist with possible EEG if needed ordered by neurology to confirm certification of brain . Neurology had seen and evaluated patient and agreed with clinical diagnosis of brain . EEG was not thought to be necessary as ancillary testing. Patient's mother and father were notified of the clinical brain diagnosis and agreed with withdrawal of care on 01/16/21. Patient was extubated and at 12:38pm. DISCHARGE MEDICATIONS: Please see below. ALLERGIES: Please see below. PHYSICAL EXAMINATION ON DISCHARGE: VITAL SIGNS: Please see below. GENERAL: Patient is intubated and not sedated. She is not responsive to any painful stimuli. HEENT: Normocephalic/atraumatic. Pupils are fixed and dilated at approximately 6 mm. There is moist mucous membranes noted. Patient has had no further epistaxis noted. NECK: Neck is thick and supple. Trachea is midline. No palpable cervical adenopathy. CARDIOVASCULAR: Regular rate and rhythm, normal S1 and S2. No appreciable murmurs. PULMONARY: There are coarse ventilator breath sounds bilaterally with occasional crackles. There is no significant wheezing noted now. There has also been minimal output on suctioning from the endotracheal tube and no further bloody output. ABDOMEN: Obese, soft, and nondistended. There is dark black-greenish output from the rectal tube now. EXTREMITIES: There is mild trace pitting edema in the lower extremities bilaterally in the feet. LABORATORY DATA: Please see below. IMAGING: CXR 01/16/21- ETT and OGT in place unchanged. Slight increase in appearance of bilateral perihilar and infrahilar lower lung zone infiltrates compared to yesterday. PROGNOSIS: Poor ACTIVITY: none, DIET: none, DISPOSITION: DISCHARGE CONDITION: TIME SPENT ON DISCHARGE: Greater than 35 minutes. Vital Signs/I&Os Vital Signs Date Time Temp Pulse Resp B/P (MAP) Pulse Ox O2 Delivery O2 Flow Rate FiO2 01/16/21 10:00 110/58 01/16/21 10:00 96.6 96 25 99 Ventilator 40 I&O- Last 24 Hours up to 6 AM 01/16/21 06:00 Intake Total 2425.55 ml Output Total 1230 ml Balance 1195.55 ml Laboratory Data Labs 24H Laboratory Tests 2 01/15/21 16:47: Bedside Glucose (Misc Panel) 136H 01/15/21 17:04: Immature Granulocyte % (Auto) , Neutrophils (%) (Auto) , Lymphocytes (%) (Auto) , Monocytes (%) (Auto) , Eosinophils (%) (Auto) , Basophils (%) (Auto) , Neutrophils # (Auto) , Lymphocytes # (Auto) , Monocytes # (Auto) , Eosinophils # (Auto) , Basophils # (Auto) , Nucleated Red Blood Cells % (auto) 0.0, Neutrophils 57, Band Neutrophils 31H, Lymphocytes (Manual) 5L, Monocytes (Manual) 3, Metamyelocytes 2H, Atypical Lymphocytes 2, Platelet Estimate DECREASED, Anion Gap 14, Glomerular Filtration Rate 12.9L, Calcium Level 7.2L, Magnesium Level 1.9, Troponin I 2.12#*H, Free Thyroxine 1.29 01/15/21 23:55: Bedside Glucose (Misc Panel) 152H 01/16/21 04:20: Immature Granulocyte % (Auto) , Neutrophils (%) (Auto) , Nucleated Red Blood Cells % (auto) 0.1H, Neutrophils 70H, Band Neutrophils 17H, Lymphocytes (Manual) 8L, Metamyelocytes 4H, Atypical Lymphocytes 1, Platelet Estimate DECREASED, Anion Gap 11, Glomerular Filtration Rate 10.3L, Calcium Level 7.0L, Basophilic Stippling 1+, Immature Platelet Fraction 12.0H, Total Bilirubin 0.8, Aspartate Amino Transf (AST/SGOT) 970H, Alanine Aminotransferase (ALT/SGPT) 843H, Alkaline Phosphatase 119H, Total Protein 4.8L, Albumin 2.1L, Albumin/Globulin Ratio 0.8L 01/16/21 05:41: Bedside Glucose (Misc Panel) 150H 01/16/21 06:00: Blood Gas Bicarbonate Standard 21.6L, Arterial Blood pH 7.425, Arterial Blood Partial Pressure CO2 31.3L, Arterial Blood Partial Pressure O2 127.7H, Arterial Blood Total CO2 21.0L, Arterial Blood HCO3 20.1L, Arterial Blood Base Excess - 3.4L, Arterial Blood Oxygen Saturation 98.6 01/16/21 12:13: Bedside Glucose (Misc Panel) 125H CBC/BMP Laboratory Tests 01/15/21 17:04 01/16/21 04:20 FSBS Laboratory Tests Test 01/15/21 16:47 01/15/21 23:55 01/16/21 05:41 01/16/21 12:13 Range/Units Bedside Glucose (Misc Panel) 136 152 150 125 70-105 MG/DL Microbiology Microbiology 01/13/21 Respiratory Virus Panel (PCR) ([facility]) - Final, Complete SARS-CoV-2 (COVID 19) Discharge Medications Unable to Obtain Active Prescriptions or Reported Meds Allergies Coded Allergies: No Known Allergies (Unverified , 01/13/21) SCOTT PATTERSON MD Jan 16, 2021 13:06
--- NOTE | 2021-01-17 00:07 | ECGEPIP ---
[facility] Test Date: 2021-01-14 Pat Name: AMANDA FARIAS Department: Room: [place] [address] Gender: Female Operations Controller: icu : [id number] Requested By: SCOTT PATTERSON Order Number: [id number] Reading MD: Quang Burnette Measurements Intervals [place] Rate: 114 P: 87 VA: 112 QRS: 80 QRSD: 98 T: -2 QT: 406 QTc: 559 Interpretive Statements Critical Test Result: Long QTc Sinus tachycardia Nonspecific ST abnormality Prior on 01/13/21 at 22:22, ST/T abnormalities are no longer present Electronically Signed on 01-17-2021 0:06:54 EST by Quang Burnette
== END 2021-01-16 12:38 | disposition expired | DRG 816 ==
LOC: M ED 21:40 → M ED INP 01-14 → M ICU 01-14 00:50
PROVIDERS: ADMIT Internal Medicine Pulmonary Disease; ATTEND Internal Medicine Pulmonary Disease
PROC: 0BJ08ZZ Inspection of Tracheobronchial Tree, Via Natural or Artificial Opening Endoscopic (ICD-10-PCS; principal; 2021-01-14)
PROC: 5A1945Z Respiratory Ventilation, 24-96 Consecutive Hours (ICD-10-PCS; 2021-01-14)
PROC: 30233N1 Transfusion of Nonautologous Red Blood Cells into Peripheral Vein, Percutaneous Approach (ICD-10-PCS; 2021-01-14)
PROC: 30233K1 Transfusion of Nonautologous Frozen Plasma into Peripheral Vein, Percutaneous Approach (ICD-10-PCS; 2021-01-14)
PROC: 06HM33Z Insertion of Infusion Device into Right Femoral Vein, Percutaneous Approach (ICD-10-PCS; 2021-01-14)
DX: T40.1X1A Poisoning by heroin, accidental (unintentional), initial encounter (principal); I46.9 Cardiac arrest, cause unspecified; J96.01 Acute respiratory failure with hypoxia; D65 Disseminated intravascular coagulation [defibrination syndrome]; R57.0 Cardiogenic shock; A41.9 Sepsis, unspecified organism; G93.1 Anoxic brain damage, not elsewhere classified; J69.0 Pneumonitis due to inhalation of food and vomit; U07.1 COVID-19; I47.2 Ventricular tachycardia; E87.4 Mixed disorder of acid-base balance; I24.8 Other forms of acute ischemic heart disease; E87.5 Hyperkalemia; K92.2 Gastrointestinal hemorrhage, unspecified; R04.89 Hemorrhage from other sites in respiratory passages; Z66 Do not resuscitate; E66.9 Obesity, unspecified; F31.9 Bipolar disorder, unspecified; F17.200 Nicotine dependence, unspecified, uncomplicated; Z68.38 Body mass index [BMI] 38.0-38.9, adult